=== PATIENT | male | born 1950 | race Caucasian/White ===

== ENCOUNTER → 2017-04-07 | Outpatient (CLI) | payer OTHER ==
[2017-04-07 12:52] LABS: BASO % 0.3 %; BASO ABS # 0.02 K/uL (0-0.2); COMPLETE YES; EOS % 6.4 %; HEMATOCRIT 41.9 % (42-52); IG% 0.2 %; LYMPH % 28.4 %; LYMPH ABS # 1.68 K/uL (1.2-3.4); MEAN CELL VOLUME 97.4 fL (80-100); MEAN CORPUSCULAR HEMOGLOBIN 34.4 pg (25-34); MEAN CORPUSCULAR HGB CONC 35.3 g/dl (32-36); MEAN PLATELET VOLUME 9.6 fL (7.4-10.4); MONO % 11.7 %; PLATELET COUNT 237 K/uL (130-400); WHITE BLOOD COUNT 5.92 K/uL (4.8-10.8)
[2017-04-07 13:29] LABS: ALT/SGPT 47 U/L (12-78)
[2017-04-07 13:32] LABS: ALKALINE PHOSPHATASE 71 U/L (45-117); AST/SGOT 30 U/L (15-37)
== END | disposition home or self-care (01) ==
LOC: C.LAB 10:55
PROVIDERS: ATTEND Physician Assistant
DX: Z79.899 Other long term (current) drug therapy (principal)

== ENCOUNTER → 2017-09-03 | Outpatient (CLI) | payer OTHER ==
--- NOTE | 2017-09-03 10:06 | DIAGNOSTIC IMAGING REPORT ---
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 No evidence for aneurysm or dissection. IMPRESSION: Mild atherosclerotic change. No evidence for aneurysm. The above report was generated using voice recognition software. It may contain grammatical, syntax or spelling errors. Electronically signed by: Nish Martinez M.D. 09/03/2017 10:05 AM Dictated Date/Time: 09/03/2017 10:04 AM
== END | disposition home or self-care (01) ==
LOC: C.ULTR 09:24
PROVIDERS: ATTEND Internal Medicine
DX: F17.200 Nicotine dependence, unspecified, uncomplicated (principal); Z13.6 Encounter for screening for cardiovascular disorders

== ENCOUNTER → 2018-02-03 | Day surgery (SDC) | payer OTHER ==
[2018-01-15 14:29] VITALS: Ht 175.3 cm; Wt 81.8 kg
[~2018-02-03] VITALS: Ht 175.3 cm; Wt 81.8 kg
[~2018-02-03] MED LIST: ADAL40KI INJ; FOLI1TAB8 PO; LIDOCAINE HCL 2% 2 ML VIAL (20MG/ML) ONE; OMEP20CA9 PO; PROPOFOL IV EMULSION 10 MG/ML 20 ML VIAL IV ONE; ROSU5TAB19 PO; SODIUM CHLORIDE 0.9% 500ML 500 ML IV ONE
--- NOTE | 2018-02-03 10:17 | Endo History and Physical ---
History & Physical Date of Service: Feb 03, 2018. Chief Complaint: Tubular adenoma of colon Referring Physician: Dr. Boston History of Present Illness 67 yo CM who presents for colonoscopy secondary to history of colon polyps. Past Surgical History Hx Cardiac Surgery: No Hx Internal Defibrillator: No Hx Pacemaker: No Hx Abdominal Surgery: No Hx of Implantable Prosthesis: No Hx Post-Op Nausea and Vomiting: No Hx Cancer Surgery: No Hx Thoracic Surgery: No Hx Orthopedic: Yes (LEFT COLLAR BONE FX REPAIR (HARDWARE), RT KNEE MENISCUS REPAIR) Hx Urinary Tract Surgery: No Family History None Social History Smoking Status: Current Every Day Smoker Hx Substance Use: No Hx Alcohol Use: No Allergies Coded Allergies: NO KNOWN DRUG ALLERGIES (Verified Allergy, Unknown, ., 02/03/18) Current Medications Reported Home Medications Medications Dose Route/Sig Max Daily Dose Days Date Category Humira Pen (Adalimumab) 40 Mg/0.8 Ml Kit 1 Dose INJ [id number] 01/15/18 Reported Rosuvastatin Calcium 5 Mg Tab 1 Tab PO QAM 01/15/18 Reported Folvite (Folic Acid) 1 Mg Tab 1 Mg PO QAM 01/15/18 Reported Prilosec (Omeprazole) 20 Mg Cap 20 Mg PO QAM 01/15/18 Reported Vital Signs Weight (Kilograms): 81.82 Height (Feet): 5 Height (Inches): 9 Date Time Temp Pulse Resp B/P (MAP) Pulse Ox O2 Delivery O2 Flow Rate FiO2 02/03/18 09:34 36.8 80 18 130/69 (89) 95 Room Air Physical Exam General Appearance: WD/WN, no apparent distress Respiratory/Chest: Auscultation: breath sounds normal Cardiovascular: Heart Auscultation: RRR Abdomen: Bowel Sounds: normal Inspection & Palpation: soft, non-distended, no tenderness, guarding & rebound Assessment and Plan Assessment: 67 yo CM who presents for colonoscopy secondary to history of colon polyps. Plan: Proceed with colonoscopy.
--- NOTE | 2018-02-03 11:05 | GI REPORT ---
Procedure Date: 02/03/2018 9:58 AM Procedure: Colonoscopy Indications: High risk colon cancer surveillance: Personal history of colonic polyps Medicines: Monitored Anesthesia Care Complications: No immediate complications. Estimated Blood Loss: Estimated blood loss: none. Procedure: Pre-Anesthesia Assessment: - Prior to the procedure, a History and Physical was performed, and patient medications and allergies were reviewed. The patient's tolerance of previous anesthesia was also reviewed. The risks and benefits of the procedure and the sedation options and risks were discussed with the patient. All questions were answered, and informed consent was obtained. Prior Anticoagulants: The patient has taken no previous anticoagulant or antiplatelet agents. ASA Grade Assessment: II - A patient with mild systemic disease. After reviewing the risks and benefits, the patient was deemed in satisfactory condition to undergo the procedure. After I obtained informed consent, the scope was passed under direct vision. Throughout the procedure, the patient's blood pressure, pulse, and oxygen saturations were monitored continuously. The scope was introduced through the anus and advanced to the terminal ileum. The colonoscopy was performed without difficulty. The patient tolerated the procedure well. The quality of the bowel preparation was good. The terminal ileum, ileocecal valve, appendiceal orifice, and rectum were photographed. Findings: The perianal and digital rectal examinations were normal. A 20 mm polyp was found in the ascending colon. The polyp was flat. The polyp was removed with a saline injection-lift technique with injection of 9 ml followed by piecemeal removal via hot snare. Resection and retrieval were complete. A 5 mm polyp was found in the ascending colon. The polyp was sessile. The polyp was removed with a hot snare. Resection and retrieval were complete. Non-bleeding internal hemorrhoids were found during retroflexion. The hemorrhoids were small. Impression: - One 20 mm polyp in the ascending colon, removed using injection-lift and a hot snare. Resected and retrieved. - One 5 mm polyp in the ascending colon, removed with a hot snare. Resected and retrieved. - Non-bleeding internal hemorrhoids. Recommendation: - Resume previous diet. - Continue present medications. - Repeat colonoscopy for surveillance based on pathology results. - Return to primary care physician as previously scheduled. Alexis Yang DO 02/03/2018 11:05:07 AM This report has been signed electronically. Note Initiated On: 02/03/2018 9:58 AM I attest to the content of the Intraoperative Record and orders documented therein, exceptions below
--- NOTE | 2018-02-03 11:06 | Discharge Instructions ---
Endoscopy Patient Instructions Date / Procedure(s) Performed Feb 03, 2018. Colonoscopy Allergy Information Coded Allergies: NO KNOWN DRUG ALLERGIES (Verified Allergy, Unknown, ., 02/03/18) Discharge Date / Findings Feb 03, 2018. Colon polyps Internal hemorrhoids Medication Instructions OK to resume all medications today as prescribed Reported Home Medications Medications Dose Route/Sig Max Daily Dose Days Date Category Humira Pen (Adalimumab) 40 Mg/0.8 Ml Kit 1 Dose INJ [id number] 01/15/18 Reported Rosuvastatin Calcium 5 Mg Tab 1 Tab PO QAM 01/15/18 Reported Folvite (Folic Acid) 1 Mg Tab 1 Mg PO QAM 01/15/18 Reported Prilosec (Omeprazole) 20 Mg Cap 20 Mg PO QAM 01/15/18 Reported Provider Instructions Activity Restrictions - No exercising or heavy lifting for 24 hours. - Do not drink alcohol the day of the procedure. - Do not drive a car or operate machinery until the day after the procedure. - Do not make any important decisions or sign important papers in 24 hours after the procedure. Following Day: - Return to full activity which may include returning to work/school. Diet Start your diet with liquids and light foods (jello, soup, juice, toast). Then eat your usual diet if not nauseated. Treatment For Common After Affects For mild abdominal pain, bloating, or excessive gas: - Rest - Eat lightly - Lie on right side Follow-Up Information Follow-up with Dr. Boston as scheduled Anesthesia Information What You Should Know You have had a procedure that required some medicine to reduce anxiety and discomfort. This treatment is called moderate sedation. After receiving the treatment, you may be sleepy, but you will be able to breathe on your own. The effects of the treatment may last for several hours. Follow these instructions along with Activity/Diet recommendations noted above: * Do NOT do anything where dizziness or clumsiness would be dangerous. * Rest quietly at home today, then you can be up and about tomorrow. * Have a responsible person stay with you the rest of today. * You may have had an I.V. today. If so, you may take the dressing off later today. Recommendations Call your doctor if: * Trouble breathing * Continuous vomiting for more than 24 hours * Temperature above 101 degrees * Severe abdominal pain or bloating * Pain not relieved by pain medicine ordered * There is increased drainage or redness from any incision * A large amount of rectal bleeding greater than 2-3 tablespoons. (If you had a polyp/s removed or have hemorrhoids, a small amount of blood - from the rectum is to be expected.) * You have any unanswered questions or concerns. IN THE EVENT OF A SERIOUS EMERGENCY, GO TO THE NEAREST EMERGENCY ROOM Your discharge instructions were prepared by provider Alexis Yang. Patient Instructions Signature Page Jr Holley Patient (or Guardian) Signature/Date: I have read and understand the instructions given to me by my caregivers. Caregiver/RN/Doctor Signature/Date: The above-named patient and/or guardian has received patient instructions on this date. + Original Patient Signature Page (only) stays with chart. Please make copy for patient.
[2018-02-03 11:34] VITALS: BP 107/83; PULSE 61; O2SAT 97
--- NOTE | 2018-02-03 12:26 | Anesthesiology Progress Note ---
Anesthesia Post Op Note Date & Time Feb 03, 2018 at 12:26 Vital Signs Pain Intensity: 0 Vital Signs Past 12 Hours Date Time Temp Pulse Resp B/P (MAP) Pulse Ox O2 Delivery O2 Flow Rate FiO2 02/03/18 11:34 61 18 107/83 (91) 97 Room Air 02/03/18 11:19 61 18 136/89 (105) 97 Room Air 02/03/18 11:04 66 18 126/69 (88) 98 Room Air 02/03/18 09:34 36.8 80 18 130/69 (89) 95 Room Air Notes Mental Status: alert / awake / arousable, participated in evaluation Pt Amnestic to Procedure: Yes Nausea / Vomiting: adequately controlled Pain: adequately controlled Airway Patency, RR, SpO2: stable & adequate BP & HR: stable & adequate Hydration State: stable & adequate Anesthetic Complications: no major complications apparent
== END | disposition home or self-care (01) ==
LOC: C.GI 09:01
PROVIDERS: ATTEND Internal Medicine
DX: Z12.11 Encounter for screening for malignant neoplasm of colon (principal); D12.2 Benign neoplasm of ascending colon; K64.8 Other hemorrhoids; F17.200 Nicotine dependence, unspecified, uncomplicated; M06.9 Rheumatoid arthritis, unspecified; Z86.010 Personal history of colon polyps

== ENCOUNTER → 2018-02-22 | Outpatient (CLI) | payer OTHER ==
[~2018-02-22] MED LIST changes: -LIDOCAINE HCL 2% 2 ML VIAL (20MG/ML) ONE; -PROPOFOL IV EMULSION 10 MG/ML 20 ML VIAL IV ONE; -SODIUM CHLORIDE 0.9% 500ML 500 ML IV ONE
[2018-02-22 10:37] LABS: HEMATOCRIT 44.9 % (42-52); HEMOGLOBIN 15.9 g/dL (14.0-18.0); MEAN CELL VOLUME 93.2 fL (80-100); MEAN CORPUSCULAR HGB CONC 35.4 g/dl (32-36); MEAN PLATELET VOLUME 9.2 fL (7.4-10.4); PLATELET COUNT 234 K/uL (130-400); RED CELL DISTRIBUTION WIDTH SD 44.5 fL (36.4-46.3); WHITE BLOOD COUNT 7.85 K/uL (4.8-10.8)
[2018-02-22 10:59] LABS: ALT/SGPT 30 U/L (12-78); AST/SGOT 20 U/L (15-37); BLOOD UREA NITROGEN 13 mg/dl (7-18); CALCIUM 9.2 mg/dl (8.5-10.1); CARBON DIOXIDE 28 mmol/L (21-32); CHOLESTEROL 182 mg/dl (0-200); CREATININE 1.14 mg/dl (0.60-1.40); GLUCOSE 113 mg/dl (70-99); POTASSIUM 4.7 mmol/L (3.5-5.1); SODIUM 137 mmol/L (136-145)
[2018-02-22 11:02] LABS: LDL CHOLESTEROL CALCULATED 94 mg/dl
== END | disposition home or self-care (01) ==
LOC: C.LAB1850 09:32
PROVIDERS: ATTEND Internal Medicine
DX: E78.00 Pure hypercholesterolemia, unspecified (principal); M06.9 Rheumatoid arthritis, unspecified

== ENCOUNTER 2018-06-10 05:24 | Day surgery (SDC) | payer OTHER ==
[2018-06-01 13:17] VITALS: BMI 25.0
[2018-06-03 12:49] VITALS: BMI 25.0
--- NOTE | 2018-06-03 13:13 | PAT Medication Instructions ---
Service Date Jun 03, 2018. Current Home Medication List Adalimumab (Humira Pen), 1 DOSE INJ [id number] Folic Acid (Folvite), 1 MG PO QAM Ibuprofen Tab (Advil), 400 MG PO PRN Omeprazole (Prilosec), 20 MG PO QAM Rosuvastatin Calcium (Rosuvastatin Calcium), 1 TAB PO QAM Medication Instructions For Your Scheduled Surgery -Continue as directed after surgery Adalimumab (Humira Pen), 1 DOSE INJ [id number] -Instructions per surgeon: Ibuprofen Tab (Advil), 400 MG PO PRN - Hold the following medications the morning of surgery: Folic Acid (Folvite), 1 MG PO QAM - Take the following medications the morning of surgery with a sip of water: Omeprazole (Prilosec), 20 MG PO QAM Rosuvastatin Calcium (Rosuvastatin Calcium), 1 TAB PO QAM If you have any questions please call us at [phone] or [phone] or [phone]
[2018-06-03 13:38] LABS: BASO % 0.3 %; BASO ABS # 0.02 K/uL (0-0.2); EOS % 6.7 %; EOS ABS # 0.53 K/uL (0-0.5); HEMATOCRIT 44.9 % (42-52); HEMOGLOBIN 16.1 g/dL (14.0-18.0); IG# 0.02 K/uL (0.00-0.02); LYMPH % 26.8 %; LYMPH ABS # 2.13 K/uL (1.2-3.4); MEAN CELL VOLUME 94.3 fL (80-100); MEAN CORPUSCULAR HEMOGLOBIN 33.8 pg (25-34); MEAN CORPUSCULAR HGB CONC 35.9 g/dl (32-36); MEAN PLATELET VOLUME 9.6 fL (7.4-10.4); MONO % 9.1 %; MONO ABS # 0.72 K/uL (0.11-0.59); NEUT % 56.8 %; NEUT ABS # 4.53 K/uL (1.4-6.5); PLATELET COUNT 211 K/uL (130-400); RED CELL DISTRIBUTION WIDTH CV 13.2 % (11.5-14.5); RED CELL DISTRIBUTION WIDTH SD 45.7 fL (36.4-46.3); WHITE BLOOD COUNT 7.95 K/uL (4.8-10.8)
--- NOTE | 2018-06-03 13:53 | DIAGNOSTIC IMAGING REPORT ---
CERVICAL SPINE 2 OR 3 VIEWS HISTORY: Preoperative evaluation pre op RA; lateral neutral/flexion/extension COMPARISON: None. FINDINGS: The cervical spine is visualized from C1 through the superior endplate of T1. There is no fracture. No subluxation. Mild degenerative disc change. Prevertebral soft tissues and the atlantodens interval are intact. No evidence for positional subluxation IMPRESSION: No evidence for positional subluxation. The above report was generated using voice recognition software. It may contain grammatical, syntax or spelling errors. Electronically signed by: Nish Martinez M.D. 06/03/2018 1:51 PM Dictated Date/Time: 06/03/2018 1:50 PM
[2018-06-03 14:44] LABS: CALCIUM 9.1 mg/dl (8.5-10.1); CREATININE 0.98 mg/dl (0.60-1.40); POTASSIUM 4.2 mmol/L (3.5-5.1)
[~2018-06-10] VITALS: Ht 175.3 cm; Wt 79.4 kg
[~2018-06-10 05:24] MED LIST changes: +IBUP-103 PO; +ROSU5TAB11 PO; -ROSU5TAB19 PO
[2018-06-10 05:54] VITALS: BP 143/72; PULSE 54; TEMP 36.6; O2SAT 98; Ht 175.3 cm; Wt 79.4 kg
[2018-06-10] MEDS ORDERED: LACTATED RINGER'S 1000ML 1,000 ML IV SCH (06:00)
[2018-06-10] MEDS ORDERED: CEFAZOLIN SOD 2000MG/15 ML IV PUSH ONE (06:03)
[2018-06-10] MEDS ORDERED: MIDAZOLAM HCL 1 MG/ML 2ML VIAL ONE (06:37)
[2018-06-10] MEDS ORDERED: FENTANYL CITRATE INJ 50 MCG/1 ML 2 ML VIAL ONE (06:38)
[2018-06-10] MEDS ORDERED: BUPIVACAINE/EPINEPHRINE 0.5% MPF 1:200,000 30 ML VIAL ONE ×2 (06:42→08:25)
--- NOTE | 2018-06-10 06:56 | History & Physical Bridge Note ---
H&P Re-Evaluation Bridge Note: I have examined the patient, reviewed the History & Physical and in the interval since the performance of the History & Physical I have noted the following changes of clinical significance: No changes noted
[2018-06-10] MEDS ORDERED: PROPOFOL IV EMULSION 10 MG/ML 20 ML VIAL ONE (07:38)
[2018-06-10] MEDS ORDERED: ONDANSETRON INJ 2 MG/ML 2 ML VIAL ONE (07:38)
[2018-06-10] MEDS ORDERED: DEXAMETHASONE SOD INJ 4 MG/ML VIAL ONE (07:38)
[2018-06-10] MEDS ORDERED: LIDOCAINE HCL 2% 2 ML VIAL (20MG/ML) ONE (07:38)
[2018-06-10] MEDS ORDERED: ROCURONIUM BROMIDE 10 MG/ML 5 ML VIAL ONE (07:38)
[2018-06-10] MEDS ORDERED: NEOSTIGMINE METHYLSULFATE 5 MG/5 ML SYR ONE (07:40)
[2018-06-10] MEDS ORDERED: GLYCOPYRROLATE INJ 0.2 MG/ML VIAL ONE (07:40)
--- NOTE | 2018-06-10 08:26 | [facility] Post Operative Brief Note ---
Immediate Operative Summary Operative Date Jun 10, 2018. Pre-Operative Diagnosis Bilateral Inguinal Hernias Post-Operative Diagnosis Bilateral Inguinal Hernias Procedure(s) Performed Open Bilateral Inguinal Hernia Repair with Mesh ( plug and patch) Surgeon Dr. Tim Second Cutter Surgeon(s) BETHANY Carranza Estimated Blood Loss 5 ml Findings Consistent with Post-Op Diagnosis Specimens none per surgeon Anesthesia Type General Complication(s) none
[2018-06-10] MEDS ORDERED: LABETALOL HCL IV 5 MG/ML 20ML IV PRN (08:30)
[2018-06-10] MEDS ORDERED: HYDROmorphone INJ 0.5 MG/0.5 ML SYR IV PRN (08:30)
[2018-06-10] MEDS ORDERED: ONDANSETRON INJ 2 MG/ML 2 ML VIAL IV PRN ×2 (08:30→08:45)
[2018-06-10] MEDS ORDERED: FENTANYL CITRATE INJ 50 MCG/1 ML 2 ML VIAL IV PRN (08:30)
[2018-06-10] MEDS ORDERED: ATROPINE SULFATE 0.1 MG/ML 5ML SYR IV PRN (08:30)
[2018-06-10] MEDS ORDERED: EpHEDrine SULFATE INJ 50 MG/ML AMP IV PRN (08:30)
[2018-06-10] MEDS ORDERED: MEPERIDINE HCL 25 MG/ML CARP IV PRN (08:30)
[2018-06-10] MEDS ORDERED: SODIUM CHLORIDE 0.9% 1000ML 1,000 ML IV SCH (08:34)
[2018-06-10] MEDS ORDERED: HYDR-5688 PO (08:36)
--- NOTE | 2018-06-10 08:38 | Discharge Instructions ---
Discharge Instructions Date of Service Jun 10, 2018. Admission Reason for Admission: Bilateral Inguinal Hernias Discharge Discharge Diagnosis / Problem: Bilateral Inguinal Hernias Discharge Goals Goal(s): Decrease discomfort, Improve function Activity Recommendations Activity Limitations: as noted below Lifting Limitations: no more than 10 pounds Exercise/Sports Limitations: until after follow-up appointment May Resume Sexual Activity: after follow-up appointment Shower/Bathe: tomorrow Driving or Machine Use: resume 3 days after discharge . Instructions / Follow-Up Instructions / Follow-Up You have surgical glue, Dermabond, over your incisions. You may shower tomorrow , but please do not soak or scrub your incisions. Please follow-up with Dr. Tim in the General Surgery Clinic in 1-2 weeks. Please call the clinic at [phone] to make this appointment if you do not have one already. Please call the clinic at [phone] with any questions or concerns. Current Hospital Diet Patient's current hospital diet: Discharge Diet Recommended Diet: Regular Diet Procedures Procedures Performed: Open Bilateral Inguinal Hernia Repair with Mesh ( plug and patch) Pending Studies Studies pending at discharge: no Medical Emergencies . Who to Call and When: Medical Emergencies: If at any time you feel your situation is an emergency, please call 911 immediately. . Non-Emergent Contact Non-Emergency issues call your: Primary Care Provider, Surgeon Call Non-Emergent contact if: temperature is above 101.5, your pain is not controlled, wound has increased drainage, wound has increased redness . "Provider Documentation" section prepared by Evelin Jin. .
[2018-06-10] MEDS ORDERED: HYDROCODONE/ACETAMIN 5/325MG TAB PO PRN ×2 (08:45)
--- NOTE | 2018-06-10 08:56 | [facility] Operative Report ---
Operative Report Operative Date Jun 10, 2018. Pre-Operative Diagnosis Bilateral Inguinal Hernias Post-Operative Diagnosis Bilateral Inguinal Hernias Procedure(s) Performed Open Bilateral Inguinal Hernia Repair with Mesh ( plug and patch) Surgeon Dr. Tim Securities Teller Surgeon(s) BETHANY Carranza Estimated Blood Loss 5 ml Specimens none per surgeon Complication(s) none Description of Procedure After informed consent was obtained the patient was taken the operating room and placed in supine position. After successful placement of the laryngeal mask airway the groin was shaved and sterilely prepped and draped in usual fashion. I began on the right inguinal hernia. An inguinal incision was made with a 15 blade scalpel and carried down through the soft tissue using electrocautery. The external oblique aponeurosis was skeletonized. A fresh blade was used to make an incision and then Metzenbaum scissors were used to extend this distally through the external ring as well as for several centimeters proximally. Once in the inguinal canal I used blunt finger dissection to free up the cord and cord structures. I was able to gently tease the cord off of the pubic bone and placed a [place] drain around it. We immediately noted a rather large direct/discrete inguinal hernia. We are able to dissect it back to its neck and reduce it. We inspected the cord and cord structures and there was no evidence of an indirect hernia. we then thoroughly irrigated the wound. I decided to use a plug and patch technique. I placed a polypropylene plug into the defect after reducing the hernia and secured to surrounding musculature including the shelving portion of Poupart's ligament with 0 Ethibond. Next, I used a polypropylene lopez-holed mesh as an onlay. It was secured distally to Pio's ligament, laterally along the shelving portion of Poupart's ligament and medially along the midline musculature. 0 Ethibond was used for the suturing. The "arms" of the mesh were wrapped around behind the cord and cord structures and again secured to underlying muscle. The mesh laid nice and flat and tension-free and did not impinge on the cord structures themselves. We thoroughly irrigated the wound. There was adequate hemostasis. I injected Marcaine around the edges of the mesh for postoperative analgesia. We then closed the external oblique aponeurosis with 2-0 Vicryl in a running fashion. Soft tissue was irrigated and closed in multiple layers using 3-0 Vicryl for the deep layers and 4-0 Monocryl for the skin. Some additional Marcaine was injected around the skin incision. We then used a skin glue as a dressing. My attention then turned to the left hernia. We used the exact same technique. His anatomy was identical to the right side. There was no indirect hernia but a rather large discrete direct hernia. Again we used a polypropylene plug and a polypropylene keyholed mesh as an onlay. We secured it to the same structures as the right side again using 0 Ethibond. Irrigation and closure were identical as well. We placed Marcaine around the skin and skin glue as a dressing as well. The patient was awaken extubated and transferred to recovery in stable condition. My physician's observation assistant was present throughout the entire procedure. She helped prep the patient. Helped with retraction throughout the case to aid my dissection, assisted with wound closure as well as dressing placement. I attest to the content of the Intraoperative Record and any orders documented therein. Any exceptions are noted below. I attest to the content of the Intraoperative Record and any orders documented therein. Any exceptions are noted below.
[2018-06-10 09:17] VITALS: BP 115/60; PULSE 70; TEMP 36.5; O2SAT 98
--- NOTE | 2018-06-10 09:42 | Anesthesiology Progress Note ---
Anesthesia Post Op Note Date & Time Jun 10, 2018 at 09:42 Vital Signs Pain Intensity: 4 Vital Signs Past 12 Hours Date Time Temp Pulse Resp B/P (MAP) Pulse Ox O2 Delivery O2 Flow Rate FiO2 06/10/18 09:17 36.5 70 14 115/60 98 Room Air 06/10/18 09:05 36.6 69 16 105/59 97 Room Air 06/10/18 08:55 71 16 116/68 99 Nasal Cannula 3 06/10/18 08:45 67 16 106/62 99 Nasal Cannula 3 06/10/18 08:35 36.4 99 16 109/68 95 Nasal Cannula 3 06/10/18 05:54 36.6 54 54 143/72 (95) 98 Room Air Notes Mental Status: alert / awake / arousable, participated in evaluation Pt Amnestic to Procedure: Yes Nausea / Vomiting: adequately controlled Pain: adequately controlled Airway Patency, RR, SpO2: stable & adequate BP & HR: stable & adequate Hydration State: stable & adequate Anesthetic Complications: no major complications apparent
[2018-06-10 09:47] VITALS: BP 127/78; PULSE 67; O2SAT 96
[2018-06-10 10:17] VITALS: BP 139/75; PULSE 64; O2SAT 97
[2018-06-10 10:47] VITALS: BP 133/68; PULSE 72; O2SAT 97
[2018-06-10] MEDS ORDERED: NURSING VERBAL MED ORDER ONE (11:00)
[2018-06-10] MEDS ORDERED: TAMSULOSIN HCL 0.4 MG CAP PO ONE (11:15)
[2018-06-10 11:17] VITALS: BP 144/88; PULSE 72; O2SAT 96
== END 2018-06-10 12:15 | disposition home or self-care (01) ==
LOC: C.ACU 05:24
PROVIDERS: ATTEND Surgery
DX: K40.20 Bilateral inguinal hernia, without obstruction or gangrene, not specified as recurrent (principal); K64.8 Other hemorrhoids; M19.90 Unspecified osteoarthritis, unspecified site; M06.9 Rheumatoid arthritis, unspecified; F17.200 Nicotine dependence, unspecified, uncomplicated; K21.9 Gastro-esophageal reflux disease without esophagitis; E78.00 Pure hypercholesterolemia, unspecified; Z79.82 Long term (current) use of aspirin

== ENCOUNTER 2024-07-04 14:07 | Inpatient (IN) ==
--- NOTE | 2024-07-04 14:29 | Emergency Department Note ---
Impression & Plan Colitis, Left lower quadrant abdominal pain, Acute lower GI bleeding, Leukocytosis ED Provider Note NAME: ELISSA CHACON Sr AGE: 73 SEX: M : 1950 ARRIVES VIA: Walk-In INFORMANT: Patient ED PROVIDER(S): Chris Keith MD CHIEF COMPLAINT: Abdominal pain PLAN: Disposition: Admit MEDICAL DECISION MAKING: The patient is a pleasant 73 gentleman with a past medical history of RA, hyperlipidemia, chronic smoker, GERD who presents to the emergency department for evaluation of lower abdominal pain and bright red rectal bleeding. Patient reports he first had a formed-hard bowel movement with straining this morning and small amounts of blood but then reports that 5 hours ago he began to have lower abdominal pain which is worse when he is straining. He refers having multiples episodes of red bright blood when he tried to had bowel movements. refers they were more dark in nature with blood clots. Last bowel movement was 2 days ago. He denied any history of diverticulosis or similar events in the past. He does refers having hemorrhoids in the past. He denied any dizziness or lightheadedness but refers feeling more tired than usual. Denied any chest pain, SOB, palpitations nausea or vomiting. Denied any used of blood thinner or antiplatelet. Last colonoscopy was on 01/2024 which only showed polyps. On evaluation patient is no acute distress, afebrile with stable vital signs. He appears clinically dry. He has mild left lower quadrant tenderness with involuntary guarding. There is no rebound. WBC 17K with neutrophil predominance but no left shift, nonspecific. H/H and platelets within normal limits. Chemistry without metabolic acidosis. Electrolytes without significant abnormality. Total Long is 1.6, nonspecific with LFTs otherwise normal. Lipase is not elevated. Procalcitonin is undetectable. Lactic acid 1.1, within normal limits. UA without evidence of infection. CT abdomen pelvis was performed and demonstrates colonic wall thickening from the splenic flexure to the descending colon which may be infectious/inflammatory or ischemic. However, given the patient's normal lactic acid and no metabolic acidosis suspect ischemic colitis is less likely at this time. Given leukocytosis we will proceed with empiric antibiotic treatment with Zosyn at this time. Case was also discussed with general surgery on-call, Dr. Casey who agrees with admission to medicine service for IV antibiotics, IV fluid hydration and monitoring. Recommends GI consultation as well. IV Zosyn ordered. Case was d/w Dr. Rubio [facility] [place] hospitalist who will evaluate the patient for admission. This patient was managed with the assistance of resident, Dr. Gandhi. I discussed the case with the resident, examined the patient, and confirm the findings and plan as documented in this note. Triage Nursing notes reviewed and agree them. Prior/external medical records reviewed Vital Signs: reviewed Differential diagnosis: Appendicitis, testicular torsion, infections, diverticulitis, UTI, obstruction, mesenteric ischemia, aortic pathology, inflammatory bowel disease, renal colic, PUD, pancreatitis, biliary pathology, hernia, volvulus, constipation, as well as other pathologies. ER treatment provided: See below. Diagnostics interpreted by me: Cardiac Monitoring: An order for continuous cardiac monitoring was placed and demonstrated normal sinus rhythm, 78 bpm, no ectopy. Laboratory studies: See below Imaging studies: See below Consultation(s): Case was d/w Dr. Rubio [facility] [place] hospitalist who will evaluate the patient for admission. HPI: The patient is a pleasant 73 gentleman with a past medical history of RA, hyperlipidemia, chronic smoker, GERD who presents to the emergency department for evaluation of lower abdominal pain and bright red rectal bleeding. Patient reports he first had a formed-hard bowel movement with straining this morning and small amounts of blood but then reports that 5 hours ago he began to have lower abdominal pain which is worse when he is straining. He refers having multiples episodes of red bright blood when he tried to had bowel movements. refers they were more dark in nature with blood clots. Last bowel movement was 2 days ago. He denied any history of diverticulosis or similar events in the past. He does refers having hemorrhoids in the past. He denied any dizziness or lightheadedness but refers feeling more tired than usual. Denied any chest pain, SOB, palpitations nausea or vomiting. Denied any used of blood thinner or antiplatelet. Last colonoscopy was on 01/2024 which only showed polyps. ROS: See above HPI for pertinent positives & negatives. A total of 10 systems reviewed and were otherwise negative. VITALS:See Below PHYSICAL EXAMINATION: GENERAL: Awake, alert, fatigued-appearing, in no distress HENT: Normocephalic, atraumatic. Oropharynx with dry mucous membranes and otherwise unremarkable. EYES: Normal conjunctiva. Sclera non-icteric. NECK: Supple. No nuchal rigidity. FROM. No JVD. RESPIRATORY: Clear to auscultation. CARDIAC: Regular rate, normal rhythm. Extremities warm and well perfused. Pulses equal. ABDOMEN: Soft, non-distended. Mild LLQ tenderness to palpation. Voluntary guarding. No rebound. No masses. RECTAL: Red blood per resident exam. No melena or gross hemorrhage. MUSCULOSKELETAL: Chest examination reveals no tenderness. The back is symmetrical on inspection without obvious abnormality. There is no CVA tenderness to palpation. No joint edema. LOWER EXTREMITIES: Calves are equal size bilaterally and non-tender. No edema. No discoloration. NEURO: Normal sensorium. No sensory or motor deficits noted. SKIN: No rash or jaundice noted. Chris Keith MD Past Med/Surg History Problem List (Updated 07/05/24 @ 02:30 by Chris Keith MD) Hematochezia Leukocytosis (Acute) Acute lower GI bleeding (Acute) Left lower quadrant abdominal pain (Acute) Colitis (Acute) COPD (chronic obstructive pulmonary disease) (Acute) Left knee pain Knee pain Ear lesion Ankle pain Current use of proton pump inhibitor Left shoulder pain Adjustment disorder (Acute) GERD without esophagitis (Acute) Hypercholesterolemia (Acute) Internal hemorrhoids (Acute) Tobacco use (Chronic) Tubular adenoma of colon (Acute) Rheumatoid arthritis Acid reflux History of colon polyps Medical History COPD (chronic obstructive pulmonary disease) Slow to wake up after anesthesia Smoker History of depression Tubular adenoma of colon GERD (gastroesophageal reflux disease) Rheumatoid arthritis Hyperlipidemia Surgical History History of cataract surgery History of open reduction and internal fixation (ORIF) procedure Hx of arthroscopy of knee History of herniorrhaphy History of colonoscopy Family History Mother Diabetes Cervical cancer Breast cancer Uncle Lung cancer Denies family history of Ovarian cancer Prostate cancer Myocardial infarction Colorectal cancer Stroke Social History Smoking Status: Current every day smoker Tobacco Type: Cigarettes Age Started Using Tobacco: 14; packs per day: 0.25; Cigarettes Per Day: 5; Second Hand Exposure: No; Do You Dip or Chew Tobacco: No; Tobacco Cessation Education Requested by Patient: No Hx Alcohol Use: No Hx Substance Use: No Preferred Language: Thai Communication Ability: Effective Visual Impairment: Limited Hearing Ability: Use of Hearing Aid Lime Mixer Tender Required: No Beliefs That Will Affect Care: None marital status: Current Living Situation: Spouse current occupational status: retired How many Children do You have: 2 Other Information That Helps Us Care for You: No Feels Safe at Home: Yes Safety Concerns: Feels Safe At This Time Childhood Exposure to Second-Hand Smoke: Yes (step father) Diet Comment: Regular diet caffeine: Yes Dental Care, Regularly: Yes Physical Activity Frequency: Daily Seatbelt Use: always Sunscreen Use: No Assistive Devices: Denture - Lower and Hearing Aid - Bilateral Allergies Allergies Allergy/AdvReac Type Severity Reaction Status Date / Time simvastatin [From Zocor] Allergy Intermediate Hives Verified 07/04/24 19:54 Yeast Allergy Intermediate Hives Verified 07/04/24 19:54 Home Meds Home Medications Medication Instructions Recorded Confirmed omeprazole 20 mg capsule,delayed 20 mg PO BID PRN Acid Reflux 02/01/19 07/04/24 release folic acid 1 mg tablet 1 mg PO QAM 09/12/21 07/04/24 acetaminophen 500 mg capsule 500 mg PO Q6H PRN Fever Or Pain 07/01/23 07/04/24 methotrexate sodium 2.5 mg tablet 15 mg PO Q7D 07/01/23 07/04/24 cholecalciferol (vitamin D3) 125 125 mcg PO QAM 02/04/24 07/04/24 mcg (5,000 unit) tablet (Vitamin D3) cyanocobalamin (vitamin B-12) 1,000 mcg PO QAM 02/04/24 07/04/24 1,000 mcg tablet (Vitamin B-12) Previous Rx's Medication Instructions Recorded rosuvastatin 5 mg tablet 5 mg PO QAM #90 tabs 08/14/23 Results & Data (ED) Vital Signs Vital Signs - 24 hr 07/04/24 14:11 07/04/24 15:00 07/04/24 15:10 Temperature 36.4 C L Temperature Source Temporal Artery Scan Pulse Rate 78 59 L 78 Pulse Rate from SpO2 Sensor 60 Pulse Rhythm Regular Respiratory Rate 18 21 18 Respiratory Effort / Characteristics Non-Labored Spontaneous Respiratory Depth Normal Respiratory Pattern Regular Blood Pressure 124/73 152/70 H Blood Pressure Mean 90 108 Pulse Oximetry 96 97 96 Oxygen Delivery Method Room Air Room Air Sepsis Recent Fever Within 48 Hours No Sepsis New/Unexplained Change in Mental Status N/A Sepsis Action Taken by Nursing No Action Required 07/04/24 15:10 07/04/24 15:30 07/04/24 16:30 Temperature Temperature Source Pulse Rate 61 59 L 53 L Pulse Rate from SpO2 Sensor 59 L Pulse Rhythm Respiratory Rate 17 15 Respiratory Effort / Characteristics Respiratory Depth Respiratory Pattern Blood Pressure 140/68 142/65 H Blood Pressure Mean 101 106 Pulse Oximetry 95 Oxygen Delivery Method Sepsis Recent Fever Within 48 Hours Sepsis New/Unexplained Change in Mental Status Sepsis Action Taken by Nursing 07/04/24 18:00 Temperature Temperature Source Pulse Rate 58 L Pulse Rate from SpO2 Sensor 58 L Pulse Rhythm Respiratory Rate 16 Respiratory Effort / Characteristics Respiratory Depth Respiratory Pattern Blood Pressure 134/73 Blood Pressure Mean 93 Pulse Oximetry 95 Oxygen Delivery Method Sepsis Recent Fever Within 48 Hours Sepsis New/Unexplained Change in Mental Status Sepsis Action Taken by Nursing Laboratory Data 07/04/24 14:45 07/04/24 14:45 Lab Results 07/04/24 07/04/24 07/04/24 Range/Units 14:45 17:05 17:16 WBC 17.13 H (4.8-10.8) K/ul RBC 4.61 L (4.70-6.10) M/uL Hgb 15.7 (14.0-18.0) g/dl Hct 43.4 (42.0-52.0) % MCV 94.1 (80.0-100.0) fL MCH 34.1 H (25.0-34.0) pg MCHC 36.2 H (32.0-36.0) g/dL RDW Std Deviation 44.5 (36.4-46.3) fL RDW Coeff of Marissa 13.0 (11.5-14.5) % Plt Count 269 (130-400) K/uL MPV 9.3 L (9.4-12.4) fL Immature Gran % (Auto) 0.4 % Neut % (Auto) 90.8 % Lymph % (Auto) 4.4 % [place] % (Auto) 3.6 % Eos % (Auto) 0.7 % Baso % (Auto) 0.1 % Neut # (Auto) 15.55 H (1.40-6.50) K/uL Lymph # (Auto) 0.76 L (1.20-3.40) K/uL [place] # (Auto) 0.61 H (0.11-0.59) K/uL Eos # (Auto) 0.12 (0.00-0.50) K/uL Baso # (Auto) 0.02 (0.00-0.20) K/uL Immature Gran # (Auto) 0.07 (0.01-0.20) K/uL PT 10.3 (9.0-12.0) Seconds INR 0.9 (0.9-1.1) Sodium 136 (136-145) mmol/L Potassium 4.1 (3.5-5.1) mmol/L Chloride 103 (98-107) mmol/L Carbon Dioxide 27 (21-32) mmol/L Anion Gap 6 (3-11) BUN 12 (6-23) mg/dl Creatinine 0.86 (0.6-1.4) mg/dl Est Cr Clr Drug Dosing 77.6 ml/min Est GFR ( Amer) 100.4 ml/min Est GFR (Non-Af Amer) 86.6 ml/min BUN/Creatinine Ratio 14.0 (10-20) Glucose 106 H (70-99(Fasting)) mg/dl Lactate 1.1 (0.4-2.0) mmol/L Calcium 9.3 (8.6-10.3) mg/dl Phosphorus 3.1 (2.5-4.9) mg/dl Magnesium 1.8 (1.7-2.4) mg/dl Total Bilirubin 1.6 H (0.2-1.0) mg/dl AST 19 (13-39) U/L ALT 22 (7-52) U/L Alkaline Phosphatase 71 (34-104) U/L Total Protein 6.9 (6.0-8.3) gm/dl Albumin 4.1 (3.4-5.0) gm/dl Globulin 2.8 (2.5-4.0) gm/dl Albumin/Globulin Ratio 1.5 (0.9-2) Lipase < 3 L (11-82) U/L Procalcitonin < 0.02 (0-0.5) ng/ml Urine Color Yellow Urine Appearance Clear (Clear) Urine pH 6.5 (4.5-7.5) Ur Specific [place] 1.022 (1.000-1.030) Urine Protein Negative (Negative) Urine Glucose (UA) Negative (Negative) Urine Ketones Trace H (Negative) Urine Blood Negative (Negative) Urine Nitrite Negative (Negative) Urine Bilirubin Negative (Negative) Urine Urobilinogen Negative (Negative) Ur Leukocyte Esterase Negative (Negative) Administered Medications Lactated Ringer's (Lr) 1,000 mls @ 125 mls/hr IV .Q8H PEPE Stop: 08/03/24 20:51 Last Admin: 07/04/24 21:04 Dose: 125 mls/hr Documented By: ZULEIKA Piperacillin Sod/Tazobactam Sod (Zosyn) 4.5 gm in 100 mls @ 25 mls/hr IV Q8H PEPE Stop: 07/08/24 22:59 Last Admin: 07/04/24 23:52 Dose: 25 mls/hr Documented By: ZULEIKA Morphine Sulfate (Morphine Sulfate 2 Mg/Ml Carp) 2 mg IV Q3H PRN PRN Reason: Pain (1,2,3,4,5) & Pre PT Stop: 07/18/24 23:33 Last Admin: 07/05/24 00:59 Dose: 2 mg Documented By: ZULEIKA Discontinued Medications Sodium Chloride (Nss) 1,000 mls @ 999 mls/hr IV .Q1H1M ONE Stop: 07/04/24 15:33 Last Infusion: 07/04/24 16:13 Dose: Infused Documented By: Admin: 07/04/24 14:50 Dose: 999 mls/hr Documented By: DRAKE Acetaminophen (Ofirmev) 1,000 mg in 100 mls @ 400 mls/hr IV NOW STA Stop: 07/04/24 14:57 Last Infusion: 07/04/24 15:11 Dose: Infused Documented By: Admin: 07/04/24 14:54 Dose: 400 mls/hr Documented By: DRAKE Sodium Chloride (Nss) 1,000 mls @ 999 mls/hr IV .Q1H1M PEPE Stop: 07/04/24 18:34 Last Infusion: 07/04/24 20:30 Dose: Infused Documented By: Admin: 07/04/24 17:53 Dose: 999 mls/hr Documented By: DRAKE Piperacillin Sod/Tazobactam Sod (Zosyn) 4.5 gm in 100 mls @ 200 mls/hr IV NOW ONE Stop: 07/04/24 18:02 Last Infusion: 07/04/24 18:33 Dose: Infused Documented By: Admin: 07/04/24 17:54 Dose: 200 mls/hr Documented By: DRAKE Pantoprazole Sodium 40 mg/ (Syringe) 10 mls @ 5 mls/min IV NOW ONE Stop: 07/04/24 19:32 Last Admin: 07/04/24 21:03 Dose: 5 mls/min Documented By: ZULEIKA Ioversol (Optiray 320 100ml) 94 ml IV ONCE ONE Stop: 07/04/24 16:07 Last Admin: 07/04/24 16:07 Dose: 94 ml Documented By: MOY Imaging Data Radiologist's Impression: Abdomen/Pelvis CT 07/04/24 14:34 CT abd pelvis IV con only CLINICAL HISTORY: abd pain, GI bleeding TECHNIQUE: Helical axial images of the abdomen and pelvis were obtained and displayed. Automated dose lowering techniques and/or adjustment according to patient size were utilized for this exam. This exam was performed with intravenous contrast. CT DOSE: 733.19 mGy.cm COMPARISON: Comparison is made to CT abdomen pelvis 05/05/2019 FINDINGS: Lower chest: Interstitial thickening is seen. Liver: Unremarkable. No focal lesions are seen. Gallbladder and biliary tree: No calcified gallstones. Normal caliber wall. No intra- or extrahepatic biliary ductal dilation. Pancreas: Unremarkable, no focal lesions. Spleen: Unremarkable. Adrenals: Unremarkable. Kidneys and ureters: Unremarkable. Bladder: Unremarkable. Reproductive organs: Unremarkable. Bowel: Colonic wall thickening extends from the splenic flexure to the distal sigmoid colon. A few diverticula are seen. A hiatal hernia is seen. Lymph nodes Retroperitoneal: Unremarkable. Pelvic: Unremarkable. Mesenteric: Unremarkable. Peritoneum: Normal. Vessels: Atherosclerotic calcifications are seen. Abdominal wall: A fat-containing umbilical hernia is seen. Bones: Degenerative changes in the visualized spine. IMPRESSION: Colonic thickening in the splenic flexure to the distal sigmoid colon compatible with infectious/inflammatory/ischemic colitis. The distribution does coincide with the inferior mesenteric artery distribution. ACT 112: Negative or not required by law. Electronically signed by: Gianluca Gale M.D. 07/04/2024 4:44 PM Discharge Plan Visit Data Chief Complaint: Rectal Bleed Stated Complaint: BLEEDING BOWELS, CRAMPING, WEAK ED Provider: Chris Keith ED Midlevel Provider: Jacki Bourgeois Discharge Problem: Colitis, Left lower quadrant abdominal pain, Acute lower GI bleeding, Leukocytosis Patient Disposition: Admitted As Inpatient Discharge Instructions Interventions: ED Discharge Assessment Last Done: 07/04/24 20:30 Discharge Problem: Leukocytosis Qualifiers: Leukocytosis type: unspecified Qualified Code(s): D72.829 - Elevated white blood cell count, unspecified
[2024-07-04] MEDS: SODIUM CHLORIDE 0.9% 1,000 ML IV ONE (14:50)
[2024-07-04] MEDS: ACETAMINOPHEN 1,000 MG/100 ML VIAL IV STA (14:54)
[2024-07-04 15:17] LABS: Anion Gap 6 (3-11); Blood Urea Nitrogen 12 mg/dl (6-23); Calcium 9.3 mg/dl (8.6-10.3); Carbon Dioxide 27 mmol/L (21-32); Chloride 103 mmol/L (98-107); Creatinine Clr Calc Pharmacy 77.6 ml/min; Est GFR (African American) 100.4 ml/min; Est GFR (Non-African American) 86.6 ml/min; Glucose 106 mg/dl (70-99(Fasting)); Potassium 4.1 mmol/L (3.5-5.1); Sodium 136 mmol/L (136-145)
[2024-07-04 15:19] LABS: Alanine Aminotransferase 22 U/L (7-52); Albumin Globulin Ratio 1.5 (0.9-2); Albumin Level 4.1 gm/dl (3.4-5.0); Alkaline Phosphatase 71 U/L (34-104); Aspartate Aminotransferase 19 U/L (13-39); Bilirubin,Total 1.6 mg/dl (0.2-1.0); Globulin 2.8 gm/dl (2.5-4.0); Lipase < 3 U/L (11-82); Total Protein 6.9 gm/dl (6.0-8.3)
[2024-07-04 15:30] LABS: Hematocrit (blood only) 43.4 % (42.0-52.0); Hemoglobin 15.7 g/dl (14.0-18.0); Mean Corpuscular Hemoglobin 34.1 pg (25.0-34.0); Mean Corpuscular Hgb Conc 36.2 g/dL (32.0-36.0); Mean Corpuscular Volume 94.1 fL (80.0-100.0); Mean Platelet Volume 9.3 fL (9.4-12.4); Platelet Count 269 K/uL (130-400); RDW Standard Deviation 44.5 fL (36.4-46.3); Red Blood Count 4.61 M/uL (4.70-6.10); White Blood Count 17.13 K/ul (4.8-10.8)
[2024-07-04 15:32] LABS: INR 0.9 (0.9-1.1); Prothrombin Time 10.3 Seconds (9.0-12.0)
[2024-07-04 15:52] LABS: Basophils # (auto) 0.02 K/uL (0.00-0.20); Basophils % (auto) 0.1 %; Eosinophils # (auto) 0.12 K/uL (0.00-0.50); Eosinophils % (auto) 0.7 %; Immature Granulocytes # (auto) 0.07 K/uL (0.01-0.20); Immature Granulocytes % (auto) 0.4 %; Lymphocytes # (auto) 0.76 K/uL (1.20-3.40); Lymphocytes % (auto) 4.4 %; Monocytes # (auto) 0.61 K/uL (0.11-0.59); Monocytes % (auto) 3.6 %; Neutrophils # (auto) 15.55 K/uL (1.40-6.50); Neutrophils % (auto) 90.8 %
[2024-07-04] MEDS: OPTIRAY 320 100ml IV ONE (16:07)
--- NOTE | 2024-07-04 16:45 | CT Scan Report ---
CT abd pelvis IV con only CLINICAL HISTORY: abd pain, GI bleeding TECHNIQUE: Helical axial images of the abdomen and pelvis were obtained and displayed. Automated dose lowering techniques and/or adjustment according to patient size were utilized for this exam. This e xam was performed with intravenous contrast. CT DOSE: 733.19 mGy.cm COMPARISON: Comparison is made to CT abdomen pelvis 05/05/2019 FINDINGS: Lower chest: Interstitial thickening is seen. Liver: Unremarkable. No focal lesions are seen. Gallbladder and biliary tree: No calcified gallstones. Normal caliber wall. No intra- or extrahepatic biliary ductal dilation. Pancreas: Unremarkable, no focal lesions. Spleen: Unremarkable. Adrenals: Unremarkable. Kidneys and ureters: Unremarkable. Bladder: Unremarkable. Reproductive organs: Unremarkable. Bowel: Colonic wall thickening extends from the splenic flexure to the distal sigmoid colon. A few di verticula are seen. A hiatal hernia is seen. Lymph nodes Retroperitoneal: Unremarkable. Pelvic: Unremarkable. Mesenteric: Unremarkable. Peritoneum: Normal. Vessels: Atherosclerotic calcifications are seen. Abdominal wall: A fat-containing umbilical hernia is seen. Bones: Degenerative changes in the visualized spine. IMPRESSION: Colonic thickening in the splenic flexure to the distal sigmoid colon compatible with infectious/infl ammatory/ischemic colitis. The distribution does coincide with the inferior mesenteric artery distrib ution. ACT 112: Negative or not required by law. Electronically signed by: Gianluca Gale M.D. 07/04/2024 4:44 PM
[2024-07-04 17:32] LABS: Appearance Urine Clear (Clear); Bilirubin Urine Negative (Negative); Blood Urine Negative (Negative); Color Urine Yellow; Glucose Urine UA Negative (Negative); Ketones Urine Trace (Negative); Leukocyte Esterase Urine Negative (Negative); Nitrite Urine Negative (Negative); Protein Urine Negative (Negative); Specific Gravity Urine 1.022 (1.000-1.030); Urobilinogen Urine Negative (Negative); pH Urine 6.5 (4.5-7.5)
[2024-07-04] MEDS: SODIUM CHLORIDE 0.9% 1,000 ML IV SCH (17:53)
[2024-07-04] MEDS: PIPERACILLIN/TAZOBACTAM 4.5 GM/100 ML BAG IV ONE (17:54)
[2024-07-04 18:24] LABS: Magnesium 1.8 mg/dl (1.7-2.4); Phosphorus 3.1 mg/dl (2.5-4.9)
--- NOTE | 2024-07-04 18:56 | History & Physical Report ---
Date of Service July 04, 2024 Assessment & Plan (1) Colitis: Plan: Concerning for ischemia given distribution. Lactate normal. Stool PCR and c. diff PCR to assess for infective close N.p.o., IV fluids, empiric IV Zosyn recommended by surgery Consult surgery (2) Acid reflux: Plan: Currently under control with omeprazole. Switch to pantoprazole 40 mg IV BID. (3) Hematochezia: Plan: Suspected secondary to colitis as above Hgb WNL, Repeat with AM labs (4) Rheumatoid arthritis: Plan: Hold methotrexate Plan VTE Prophylaxis - SCDs Diet - NPO Disposition - admit to PCU Admission and Anticipated Discharge Date Admission Date: July 04, 2024 History of Present Illness Chief Complaint: Abdominal pain, rectal bleeding Primary Care Provider: Shane Boston MD Jr Holley is a 73-year-old male who presents to the ER with lower abdominal pain. His pain started at 5 AM, severity is 7-8/10 at worst, currently 3/10, Constant, non-cramping, no radiation. Associated hematochezia. No nausea or vomiting. He has never had a similar pain. Last colonoscopy was on 01/2024 which only showed multiple tubular adenomas, diverticula and non-bleeding external hemorrhoids. He denies any prior stroke, heart attack or atrial fibrillation. Allergies Allergy/AdvReac Type Severity Reaction Status Date / Time simvastatin [From Zocor] Allergy Intermediate Hives Verified 07/04/24 19:54 Yeast Allergy Intermediate Hives Verified 07/04/24 19:54 Home Medications Medication Instructions Recorded Confirmed Type omeprazole 20 mg capsule,delayed 20 mg PO BID PRN Acid Reflux 02/01/19 07/04/24 History release folic acid 1 mg tablet 1 mg PO QAM 09/12/21 07/04/24 History acetaminophen 500 mg capsule 500 mg PO Q6H PRN Fever Or Pain 07/01/23 07/04/24 History methotrexate sodium 2.5 mg tablet 15 mg PO Q7D 07/01/23 07/04/24 History rosuvastatin 5 mg tablet 5 mg PO QAM #90 tabs 08/14/23 07/04/24 Rx cholecalciferol (vitamin D3) 125 125 mcg PO QAM 02/04/24 07/04/24 History mcg (5,000 unit) tablet (Vitamin D3) cyanocobalamin (vitamin B-12) 1,000 mcg PO QAM 02/04/24 07/04/24 History 1,000 mcg tablet (Vitamin B-12) Past Med/Surg History Problem List (Updated 07/05/24 @ 02:30 by Chris Keith MD) Hematochezia Leukocytosis (Acute) Acute lower GI bleeding (Acute) Left lower quadrant abdominal pain (Acute) Colitis (Acute) COPD (chronic obstructive pulmonary disease) (Acute) Left knee pain Knee pain Ear lesion Ankle pain Current use of proton pump inhibitor Left shoulder pain Adjustment disorder (Acute) GERD without esophagitis (Acute) Hypercholesterolemia (Acute) Internal hemorrhoids (Acute) Tobacco use (Chronic) Tubular adenoma of colon (Acute) Rheumatoid arthritis Acid reflux History of colon polyps Medical History COPD (chronic obstructive pulmonary disease) Slow to wake up after anesthesia Smoker History of depression Tubular adenoma of colon GERD (gastroesophageal reflux disease) Rheumatoid arthritis Hyperlipidemia Surgical History History of cataract surgery History of open reduction and internal fixation (ORIF) procedure Hx of arthroscopy of knee History of herniorrhaphy History of colonoscopy Family History Mother Diabetes Cervical cancer Breast cancer Uncle Lung cancer Denies family history of Ovarian cancer Prostate cancer Myocardial infarction Colorectal cancer Stroke Social History Smoking Status: Current every day smoker Tobacco Type: Cigarettes Age Started Using Tobacco: 14; packs per day: 0.25; Cigarettes Per Day: 5; Second Hand Exposure: No; Do You Dip or Chew Tobacco: No; Tobacco Cessation Education Requested by Patient: No Hx Alcohol Use: No Hx Substance Use: No Preferred Language: Setswana Communication Ability: Effective Visual Impairment: Limited Hearing Ability: Use of Hearing Aid Commercial Art Instructor Required: No Beliefs That Will Affect Care: None marital status: Current Living Situation: Spouse current occupational status: retired How many Children do You have: 2 Other Information That Helps Us Care for You: No Feels Safe at Home: Yes Safety Concerns: Feels Safe At This Time Childhood Exposure to Second-Hand Smoke: Yes (step father) Diet Comment: Regular diet caffeine: Yes Dental Care, Regularly: Yes Physical Activity Frequency: Daily Seatbelt Use: always Sunscreen Use: No Assistive Devices: Denture - Lower and Hearing Aid - Bilateral Review of Systems Review of Systems: All systems reviewed & are unremarkable except as noted in HPI & below Physical Exam Constitutional: WD/WN, vitals as above ENMT: external ear and nose normal, oropharynx normal Respiratory: normal respiratory effort, lungs clear to auscultation Cardiovascular: RRR, no murmur, no edema Gastrointestinal (Abdomen): Inspection/Auscultation: abdomen normal to inspe ction; abdomen not distended Percussion/Palpation: + abdomen tender (lower abdominal) and abdomen soft; no guarding and abdomen not rigid Musculoskeletal: no cyanosis or clubbing, extremities motor strength 5/5 Skin: no rashes, warm and dry Neurologic: moves all extremities and awake; not confused Psychiatric: A+Ox3, euthymic affect Results & Data Results & Data Vital Signs (Past 12 Hours) Vital Signs Temp Pulse Resp BP Pulse Ox O2 Del Method 07/04/24 18:00 58 L 16 134/73 95 07/04/24 16:30 53 L 15 142/65 H 07/04/24 15:30 59 L 17 140/68 95 07/04/24 15:10 61 07/04/24 15:10 78 18 96 Room Air 07/04/24 15:00 59 L 21 152/70 H 97 07/04/24 14:11 36.4 C L 78 18 124/73 96 Room Air Laboratory Results Abnormal lab results 07/04/24 07/04/24 Range/Units 14:45 17:05 WBC 17.13 H (4.8-10.8) K/ul RBC 4.61 L (4.70-6.10) M/uL MCH 34.1 H (25.0-34.0) pg MCHC 36.2 H (32.0-36.0) g/dL MPV 9.3 L (9.4-12.4) fL Neut # (Auto) 15.55 H (1.40-6.50) K/uL Lymph # (Auto) 0.76 L (1.20-3.40) K/uL [place] # (Auto) 0.61 H (0.11-0.59) K/uL Glucose 106 H (70-99(Fasting)) mg/dl Total Bilirubin 1.6 H (0.2-1.0) mg/dl Lipase < 3 L (11-82) U/L Urine Ketones Trace H (Negative) Diagnostic Findings CT abd pelvis IV con only CLINICAL HISTORY: abd pain, GI bleeding TECHNIQUE: Helical axial images of the abdomen and pelvis were obtained and displayed. Automated dose lowering techniques and/or adjustment according to patient size were utilized for this exam. This exam was performed with in travenous contrast. CT DOSE: 733.19 mGy.cm COMPARISON: Comparison is made to CT abdomen pelvis 05/05/2019 FINDINGS: Lower chest: Interstitial thickening is seen. Liver: Unremarkable. No focal lesions are seen. Gallbladder and biliary tree: No calcified gallstones. Normal caliber wall. No intra- or extrahepatic biliary ductal dilation. Pancreas: Unremarkable, no focal lesions. Spleen: Unremarkable. Adrenals: Unremarkable. Kidneys and ureters: Unremarkable. Bladder: Unremarkable. Reproductive organs: Unremarkable. Bowel: Colonic wall thickening extends from the splenic flexure to the distal si gmoid colon. A few diverticula are seen. A hiatal hernia is seen. Lymph nodes Retroperitoneal: Unremarkable. Pelvic: Unremarkable. Mesenteric: Unremarkable. Peritoneum: Normal. Vessels: Atherosclerotic calcifications are seen. Abdominal wall: A fat-containing umbilical hernia is seen. Bones: Degenerative changes in the visualized spine. IMPRESSION: Colonic thickening in the splenic flexure to the distal sigmoid colon compatible with infectious/inflammatory/ischemic colitis. The distribution does coincide with the inferior mesenteric artery distribution. Medications Administered ER Medications Given: Zosyn 4.5 g q.8 hourly ECG Rate (beats per minute): 56 Rhythm: sinus bradycardia Findings: no acute ischemic change Comparison ECG Date: no prior available Code Status & VTE Plan Code Status Full VTE Prophylaxis Plan VTE Prophylaxis will be ordered: Yes PG Care Time/CCT Total # of Minutes Spent Total Time Spent with Patient: Total time spent is greater than 50% in coordination of care (as documented) at patient's floor/unit and/or counseling patient: Coding Level of Care Code 22062 INT INP/OBS CARE 2/55MIN Diagnoses Colitis K52.9 Acid reflux K21.9 Hematochezia K92.1 Rheumatoid arthritis M06.9
[2024-07-04] MEDS: PANTOprazole 40 MG in SYRINGE 0 ML IV ONE (21:03)
[2024-07-04] MEDS: LACTATED RINGER'S 1,000 ML IV SCH (21:04)
--- OUTSIDE RECORDS SUMMARY | 2024-07-04 22:12 | External Medical Summary | Summary of Care ---
Author Name Unknown Organization [facility] Address [address] [place] [address] Phone [phone] Care Team Providers Care Solid Waste Disposal Manager Name Role Phone Pro, Shane Fong MD Primary Care Provider [phone] Reason for Visit * Reason Onset Date Comments Medication Refill 04/30/2024 Encounter Details Date Type Department Care Team (Late st Contact Info) Description 04/30/2024 Refill Rheumatology [address] [place] [address] Clarke Brewer MD [facility] [place] [address] Allergies Active Allergy Reactions Criticality Noted Date Comments Atorvastatin Calcium 12/29/2007 Liver enzyme elevation Yeast-Related Products High 08/16/2010 Break out in hives, throat swelling From certain kinds of breads with yeast documented as of this encounter (statuses as of 05/02/2024) Medications Medication Sig Dispensed Refills Start Date End Date Status CRESTOR 5 MG PO TABS one daily 0 0 12/29/2007 Active Multiple Vitamins-Mineral s (CENTRUM SILVER 50+MEN) TABS Take by mouth. 1 daily Active predniSONE 5 MG Oral Tablet (Deltasone) one pill each day as needed for RA flare 30 Tablet 2 04/15/2022 Active Additional Information Patient not taking.Reported on 12/15/2022 Vitamin D 125 MCG (5000 UT) Oral Capsule Take by mouth . Active Omeprazole 20 MG Oral Capsule Delayed Release (PriLOSEC)Indica tions:Encounter for long-term (current) drug use Take 1 Capsule by mouth in the morning and 1 Capsule before bedtime. 180 Capsule 3 08/27/2023 Active Folic Acid 1 MG Oral Tablet TAKE 1 TABLET BY MOUTH IN THE MORNING 90 Tablet 3 11/10/2023 Active Vitamin B 12 500 MCG Oral Tablet Take by mouth. Activ e Vitamin C 500 MG Oral Capsule Take by mouth. Active Methotrexate Sodium 2.5 MG Oral Tablet TAKE 6 TABLETS BY MOUTH ONCE A WEEK 78 Tablet 05/02/2024 Active Methotrexate Sodium 2.5 MG Oral Tablet TAKE 6 TABLETS BY MOUTH ONCE A WEEK 78 Tablet 02/03/2024 4 Discontinue d(Refill) documented as of this encounter (statuses as of 05/02/2024) Active Problems Problem Noted Date Diagnosed Date Impingement syndrome of right shoulder 8 Encounter for long-term (current) use of medicat ions 09/28/2018 Rheumatoid arthritis involvi ng multiple sites with positive rheumatoid factor 08/20/2016 PPD positive 01/12/2015 Dyslipidemia, goal to be determined 12/29/2007 Tobacco use disorder 12/29/2007 documented as of this encounter (statuses as of 05/02/2024) Resolved Problems Problem Noted Date Diagnosed Date Resolved Date ARTHRITIS,RHEUMATOID 12/29/2007 016 documented as of this encounter (statuses as of 05/02/2024) Immunizations Name Administration Dates Next Due COVID-19 mRNA, LNP-s, No Pre serve, 2-Dose Series ([employer]) 07/04/2021,01/10/2021,12/20/2020 PPD 01/08/2015 Pneumococcal Polysaccharide PPV23 (Pneumovax) 11/15/2013,04/27/2008 Seasonal Influenza, QUAD, wi th Preserv, 6 mons & Above, 0.5 mL, IM 08/26/2023,09/16/2018 Seasonal Influenza, Quadriva lent Hd, 65+ Yrs 08/09/2022,08/09/2021 Seasonal Influenza, Split, I IV3, With Preserve, Inj 07/26/2019,08/26/2016,09/14/2015,08/25,08/26/2013,08/19/2012,08/04/2011 ,08/26/2010,08/16/2010(Deferred: Patient Refused - will get 08-23 elsewhere),08/01/2009,08/02/2008 Seasonal Influenza, Trivalen t, Adjuvanted, 65+ yrs 08/26/2020 documented as of this encounter Social History Tobacco Use Types Packs/Day Years Used Date Smoking Tobacco: Every Day Cigarettes 0.3 40 Smokeless Tobacco: Never Comments:40 yrs 1 pk/day-cut down to 2 ppd09/2009 Alcohol Use Standard Drinks/Week Comments No 0 (1 standard drink = 0.6 oz pur e alcohol) Utilities Answer Date Recorded Do you have trouble paying y our heating, water, or electric bill? (Adult - for ages 18 years and over) Not on file 04/12/2024 Is your family able to pay t he heat, water, or electric bill? (Household - for ages 0-17 years) Not on file 04/12/2024 Does your family have access to good internet? (Household - for ages 0-17 years) Not on file 04/12/2024 Social Connections Answer Date Recorded How often do you feel lonely or isolated from those around you? (Adult - for ages 18 years and over) Not on file 04/12/2024 Sex and Gender Information Value Date Recorded Sex Assigned at Male 06/29/2022 5:37 AM EDT Gender Identity Male 06/29/2022 5:37 AM EDT Sexual Orientation Straight 06/29/2022 5: 37 AM EDT Job Start Date Occupation Industry Not on file Not on file Not on file documented as of this encounter Miscellaneous Notes * Telephone Encounter - Rafiq Gong [facility] - 05/02/2024 11:14 AM EDTSigned Prescriptions: Disp Refills Methotrexate Sodium 2.5 MG Oral Tablet 78 Tab*0 Sig: TAKE 6 TABLETS BY MOUTH ONCE A WEEKAuthorizing Provider: CLARKE BREWER User: RAFIQ GONG--------- * Telephone Encounter - Rafiq Gong RPh - 05/02/2024 11:13 AM EDT Rheumatology: Refill Request(s) Per review of the refill parameters, Medication was refilled Rafiq Gong RPh [facility] Clinical Pharmacist Rheumatology Department 05/02/2024,11:13 AM * Telephone Encounter - Eduardo Reeves - 04/30/2024 4:50 PM EDTPending Prescriptions: Disp Refills Methotrexate Sodium 2.5 MG Oral Tablet 78 Tab*0 * Telephone Encounter - Eduardo Reeves - 04/30/2024 4:48 PM EDT Did you pend patient's preferred pharmacy and medication before forwarding?yes Pharmacy: [facility] [address] [address] Pending Prescriptions: Disp Refills Methotrexate Sodium 2.5 MG Oral Tablet 78 Tab*0 Last Visit: 12/15/2023 (in office), 02/16/2020 (telemedicine) Next Visit: 12/20/2024 If no future appointments scheduled, and last appointment is greater than a year ago, please schedule patient for a follow-up appointment Last date the medication was ordered: 02/03/2024 Is this request for a controlled substance?No Urine Drug Screen:No results found for this or any previous visit. Patient Phone Numbers Labs: Lab Results Component Value Date/Time CREAT 1.2 02/09/2024 08:54 AM CREAT 0.88 03/14/2022 12:00 AM CREAT 1.0 04/02/2020 07:20 AM POTASSIUM 5.5 (H) 02/09/2024 08:54 AM POTASSIUM 4.5 03/14/2022 12:00 AM POTASSIUM 4.4 04/02/2020 07:20 AM TSH 2.951 03/14/2022 12:00 AM LDLCALC 73 06/10/2023 09:02 AM LDLCALC 67 03/14/2022 12:00 AM LDLCALC 04/02/2020 07:16 AM Uninterpretable, recommend direct LDL cholesterol testing. LDLDIRECT 90 02/02/2012 09:45 AM ALT 24 02/09/2024 08:54 AM ALT 32 12/28/2020 12:00 AM ALT 26 04/02/2020 07:20 AM documented in this encounter Plan of Treatment Upcoming Encounters Date Type Department Care Team (Late st Contact Info) Description 12/20/2024 9:40 AM EST Office Visit Rheumatology [address] [place] [address] Clarke Brewer MD [address] [place] [address] [place] [address] Health Maintenance Due Date Last Done Comments Depression Screening 1963 DTaP,Tdap,and Td Vaccines (1 - Tdap) 1970 Zoster Vaccines (1 of 2) 1970 Cologuard 1996 Colonoscopy 1996 Colorectal Cancer Screening 1996 Fecal Occult Blood Test 1996 Sigmoidoscopy 1996 Pneumococcal Vaccine: 65+ Years (3 of 3 - PCV) 11/15/2014 11/15/2013, 04/27/2008 AAA Screening 2016 COVID-19 Vaccine ( season) 2023 07/04/2021, 01/10/2021, 12/20/2020 Influenza Vaccine (FLU shot) (#1) 2024 08/26/2023, 08/09/2022, 08/09/2021, Additional history exists Lipid Panel 06/10/2028 06/10/2023, 02/24, 08/19/2021, Additional history exists HPV (Gardasil) Vaccine Aged Out No lo nger eligible based on patient's age to complete this topic Hepatitis B Vaccine Aged Out No longe r eligible based on patient's age to complete this topic MENINGOCOCCAL (MENACTRA/MENVEO) Aged Out No longer eligible based on patient's age to complete this topic documented as of this encounter Medical Devices Not on filedocumented as of this encounter Care Teams Solid Waste Disposal Manager Relationship Specialty Start Date End Date Pro, Shane Fong MD [address] [place] [address] PCP - General Internal Medicine 04/07/17 documented as of this encounter
[2024-07-04] MEDS ORDERED: ACETAMINOPHEN 1,000 MG/100 ML VIAL IV PRN (23:34)
[2024-07-04] MEDS: PIPERACILLIN/TAZOBACTAM 4.5 GM/100 ML BAG IV SCH (23:52)
[2024-07-05] MEDS: MoRPHine SULFATE 2 MG/ML CARP IV PRN (00:59)
[2024-07-05] MEDS: MoRPHine SULFATE 4 MG/ML 1 ML CARP\\VIAL IV PRN (05:11)
--- NOTE | 2024-07-05 06:28 | Surgery Consultation ---
Date of Consultation July 05, 2024 Assessment & Plan (1) Colitis: Patient has been admitted on the hospital service. From surgery perspective we recommend the following: Provide analgesics Provide antiemetics He is currently n.p.o. and should continue for the present time He should be hydrated IV fluids, which is being done Antibiotics in form of Zosyn have been initiated and this should continue Is unclear if the patient is having infectious etiology of his colitis he is on antibiotics as noted above and also stool studies have been ordered which are pending. Although the patient does have a leukocytosis at the present time he is nontoxic-appearing as he is normotensive without tachycardia or fever. Will continue with conservative management as noted above and monitor his clinical progress. At the present time it does not appear that though he has a surgical abdomen. Additional recommendations to be forthcoming based on his clinical course as unfolds Supervising Physician Co-Signing Physician Notes 73 yo male with left sided colitis NPO IV ABX GI consult No plans for any operation unless he has signs of full thickness ischemia/perforation History of Present Illness Attending Physician: Alexis Mcelroy MD History of Present Illness This is a 73-year-old male who presented the emergency department secondary to abdominal pain that began over the past 24 hours. Patient reportedly had pain and in the left lower quadrant of his abdomen. He also had associated bright red blood per rectum. He denies any nausea or vomiting. He notes that no close contacts are ill with similar symptoms. He denies any fevers, shakes, or chills. He notes he is only had hernia surgery in the past. Patient notes that he has had a colonoscopy in the [facility] were reviewed and his most recent colonoscopy was in January 2019. On this study the patient had polyps removed and he was noted to have diverticulosis but no other significant problems were noted on the study. Since arrival to hospital patient has had labs and imaging which I independently reviewed. He did have a CT scan abdomen pelvis that showed colonic thickening in the splenic flexurethe interpreting radiologist felt this represented either infectious/inflammatory/ischemic colitis. Labs included CBC were white blood cell count was elevated 17.1. Hemoglobin and hematocrit as well as the platelet count were normal. Coagulation studies were noted to be normal. Chemistry profile showed sodium and potassium as well as the BUN and creatinine were normal. A urinalysis was not indicative of infection. At the time of my interview he was resting comfortably bed he was in no distress. Allergies Allergy/AdvReac Type Severity Reaction Status Date / Time simvastatin [From Zocor] Allergy Intermediate Hives Verified 07/04/24 19:54 Yeast Allergy Intermediate Hives Verified 07/04/24 19:54 Home Medications Medication Instructions Recorded Confirmed Type omeprazole 20 mg capsule,delayed 20 mg PO BID PRN Acid Reflux 02/01/19 07/04/24 History release folic acid 1 mg tablet 1 mg PO QAM 09/12/21 07/04/24 History acetaminophen 500 mg capsule 500 mg PO Q6H PRN Fever Or Pain 07/01/23 07/04/24 History methotrexate sodium 2.5 mg tablet 15 mg PO Q7D 07/01/23 07/04/24 History rosuvastatin 5 mg tablet 5 mg PO QAM #90 tabs 08/14/23 07/04/24 Rx cholecalciferol (vitamin D3) 125 125 mcg PO QAM 02/04/24 07/04/24 History mcg (5,000 unit) tablet (Vitamin D3) cyanocobalamin (vitamin B-12) 1,000 mcg PO QAM 02/04/24 07/04/24 History 1,000 mcg tablet (Vitamin B-12) Patient History Medical History COPD (chronic obstructive pulmonary disease) Slow to wake up after anesthesia Smoker History of depression Tubular adenoma of colon GERD (gastroesophageal reflux disease) Rheumatoid arthritis Hyperlipidemia Surgical History History of cataract surgery History of open reduction and internal fixation (ORIF) procedure Hx of arthroscopy of knee History of herniorrhaphy History of colonoscopy Family History Mother Diabetes Cervical cancer Breast cancer Uncle Lung cancer Denies family history of Ovarian cancer Prostate cancer Myocardial infarction Colorectal cancer Stroke Social History Smoking Status: Current every day smoker Tobacco Type: Cigarettes Age Started Using Tobacco: 14; packs per day: 0.25; Cigarettes Per Day: 5; Second Hand Exposure: No; Do You Dip or Chew Tobacco: No; Tobacco Cessation Education Requested by Patient: No Hx Alcohol Use: No Hx Substance Use: No Preferred Language: Chinese Communication Ability: Effective Visual Impairment: Limited Hearing Ability: Use of Hearing Aid Food Service Associate Required: No Beliefs That Will Affect Care: None marital status: Current Living Situation: Spouse current occupational status: retired How many Children do You have: 2 Other Information That Helps Us Care for You: No Feels Safe at Home: Yes Safety Concerns: Feels Safe At This Time Childhood Exposure to Second-Hand Smoke: Yes (step father) Diet Comment: Regular diet caffeine: Yes Dental Care, Regularly: Yes Physical Activity Frequency: Daily Seatbelt Use: always Sunscreen Use: No Assistive Devices: Denture - Lower and Hearing Aid - Bilateral Review of Systems Review of Systems: All systems reviewed & are unremarkable except as noted in HPI & below Physical Exam Constitutional: WD/WN, vitals as above Eyes: no conjunctival abnormality ENMT: Ears: no hearing impairment and no external ear abnormality Mouth: no oropharynx abnormality Neck: trachea midline Respiratory: normal respiratory effort; no respiratory distress and no labored breathing Cardiovascular: Rate/Rhythm: regular rate and regular rhythm Gastrointestinal (Abdomen): At the time my exam patient's abdomen was soft and nondistended. There is no rebound tenderness or guarding. Patient only had slight tenderness to palpation in the left lower quadrant. Musculoskeletal: No calf tenderness Skin: no rashes Neurologic: moves all extremities Psychiatric: A+Ox3, euthymic affect Results & Data Vital Signs (Past 12 Hours) Vital Signs Temp Pulse Pulse Resp BP Pulse Ox Pulse Ox 07/05/24 02:50 37.2 C 66 18 134/70 96 07/04/24 23:39 58 L 07/04/24 21:51 36.6 C 49 L 18 163/70 H 97 07/04/24 21:48 62 07/04/24 21:32 07/04/24 20:52 36.6 C 63 18 163/70 H 97 07/04/24 20:52 97 07/04/24 20:30 59 L 18 150/70 H 95 07/04/24 19:03 51 L O2 Del Method O2 Del Method 07/05/24 02:50 Room Air 07/04/24 23:39 07/04/24 21:51 Room Air 07/04/24 21:48 07/04/24 21:32 Room Air 07/04/24 20:52 Room Air 07/04/24 20:52 Room Air 07/04/24 20:30 Room Air 07/04/24 19:03 PG Care Time/CCT Total # of Minutes Spent Total Time Spent with Patient: Total time spent is greater than 50% in coordination of care (as documented) at patient's floor/unit and/or counseling patient: Coding Level of Care Code 72351 INT INP/OBS CARE 3/75MIN Diagnoses Colitis K52.9
[2024-07-05 08:07] LABS: Basophils # (auto) 0.02 K/uL (0.00-0.20); Basophils % (auto) 0.2 %; Eosinophils # (auto) 0.32 K/uL (0.00-0.50); Eosinophils % (auto) 2.7 %; Hematocrit (blood only) 38.5 % (42.0-52.0); Hemoglobin 13.3 g/dl (14.0-18.0); Immature Granulocytes # (auto) 0.04 K/uL (0.01-0.20); Immature Granulocytes % (auto) 0.3 %; Lymphocytes # (auto) 0.99 K/uL (1.20-3.40); Lymphocytes % (auto) 8.3 %; Mean Corpuscular Hemoglobin 33.3 pg (25.0-34.0); Mean Corpuscular Hgb Conc 34.5 g/dL (32.0-36.0); Mean Corpuscular Volume 96.5 fL (80.0-100.0); Mean Platelet Volume 9.3 fL (9.4-12.4); Monocytes # (auto) 0.96 K/uL (0.11-0.59); Neutrophils # (auto) 9.67 K/uL (1.40-6.50); Neutrophils % (auto) 80.5 %; Platelet Count 204 K/uL (130-400); RDW Coefficient of Variation 13.5 % (11.5-14.5); Red Blood Count 3.99 M/uL (4.70-6.10)
[2024-07-05 08:21] LABS: Albumin Globulin Ratio 1.6 (0.9-2); Albumin Level 3.3 gm/dl (3.4-5.0); BUN Creatinine Ratio 9.3 (10-20); Calcium 8.2 mg/dl (8.6-10.3); Creatinine Clr Calc Pharmacy 77.6 ml/min; Est GFR (African American) 100.4 ml/min; Est GFR (Non-African American) 86.6 ml/min; Globulin 2.1 gm/dl (2.5-4.0); Potassium 3.9 mmol/L (3.5-5.1); Total Protein 5.4 gm/dl (6.0-8.3)
[2024-07-05] MEDS: PANTOprazole 40 MG in SYRINGE 0 ML IV SCH (08:53)
[2024-07-05] MEDS: traMADol HCL 50 MG TABLET PO STA (12:08)
[2024-07-05 12:21] LABS: Adenovirus F 40/41 PCR Not Detected (NotDetected); Astrovirus PCR Not Detected (NotDetected); Campylobacter PCR Not Detected (NotDetected); Cryptosporidium PCR Not Detected (NotDetected); Cyclospora cayetanensis PCR Not Detected (NotDetected); Entamoeba histolytica PCR Not Detected (NotDetected); Enteroaggregative E.coli(EAEC) Not Detected (NotDetected); Enterotoxigenic E.coli (ETEC) Not Detected (NotDetected); Giardia lamblia PCR Not Detected (NotDetected); Norovirus GI/GII PCR Not Detected (NotDetected); Plesiomonas shigelloides PCR Not Detected (NotDetected); Rotavirus A PCR Not Detected (NotDetected); Salmonella PCR Not Detected (NotDetected); Sapovirus PCR Not Detected (NotDetected); Shiga-like Toxin E.coli (STEC) Not Detected (NotDetected); Shigella/Enteroinvasive E.coli Not Detected (NotDetected); Vibrio cholerae PCR Not Detected (NotDetected); Vibrio species PCR Not Detected (NotDetected); Yersinia enterocolitica PCR Not Detected (NotDetected)
[2024-07-05 12:24] LABS: Enteropathogenic E.coli (EPEC) DETECTED (NotDetected)
[2024-07-05 13:15] LABS: Hematocrit (blood only) 37.7 % (42.0-52.0); Hemoglobin 13.1 g/dl (14.0-18.0)
[2024-07-05] MEDS: AZITHROMYCIN 250 MG TAB PO ONE (14:25)
--- NOTE | 2024-07-05 19:31 | Hospitalist Progress Note ---
Date of Service July 05, 2024 Assessment & Plan (1) Colitis: Plan: could be combination of ischemia (ADELE distribution) and infection (EPEC positive on stool BioFire) either way should improve with supportive care cont NPO status due to pain & ongoing bloody stools cont IV fluids is on zosyn if ischemic colitis adding azithromycin x 3 days for EPEC given severity of illness repeat labs am appreciate gen surg assistance (2) Acid reflux: Plan: cont pantoprazole 40 mg IV BID (3) Hematochezia: Plan: 2nd to #1 trend H/H (4) Rheumatoid arthritis: Plan: Hold methotrexate No RA flare at this time (5) Enteropathogenic Escherichia coli infection: Plan: stool BioFire + for such could be cause of #1 above in light of severity of illness will Rx with azithromycin 500mg PO daily x 3 days, first dose now (6) Acute blood loss anemia: Plan: 2nd to #1 mild drop - initial Hb 15.7, now 13.1 trend H/H (7) COPD (chronic obstructive pulmonary disease): Plan: no flare at this time Plan VTE Prophylaxis - SCDs, chemical means contraindicated due to #1 Admission and Anticipated Discharge Date Admission Date: July 04, 2024 Subjective pt reports still feels unwell but improved abdominal pain - lower - not as severe as yesterday no recent travel no sick contacts no obvious old, contaminated foods consumed has had total of 3 loose stools - 1 of which was very bloody - since this am no vomiting tele - NSR Review of Systems Review of Systems: gen - no fevers cv - no chest pain pulm - no dyspnea GI - ongoing abd pain but improving Physical Exam Physical Exam: gen - looks unwell, resting comfortably in bed mouth - MM slightly dry neck - no JVD heart - RRR, s1 s2, no murmur lungs - CTA b/l abd - tender LLQ, BS+, ND, no HSM, soft, no peritoneal signs ext - no edema, pulses 2+ b/l psych - a/o x 3 Results & Data Results & Data Vital Signs (Past 12 Hours) Vital Signs Temp Pulse Pulse Resp BP Pulse Ox O2 Del Method 07/05/24 15:49 66 07/05/24 14:55 36.7 C 63 19 120/66 97 Room Air 07/05/24 10:51 36.7 C 63 19 120/66 97 Room Air 07/05/24 10:05 68 Laboratory Results Laboratory Results - last 24 hr 07/05/24 07/05/24 07/05/24 07:27 10:30 12:41 WBC 12.00 H RBC 3.99 L Hgb 13.3 L 13.1 L Hct 38.5 L 37.7 L MCV 96.5 MCH 33.3 MCHC 34.5 RDW Std Deviation 47.0 H RDW Coeff of Marissa 13.5 Plt Count 204 MPV 9.3 L Immature Gran % (Auto) 0.3 Neut % (Auto) 80.5 Lymph % (Auto) 8.3 [place] % (Auto) 8.0 Eos % (Auto) 2.7 Baso % (Auto) 0.2 Neut # (Auto) 9.67 H Lymph # (Auto) 0.99 L [place] # (Auto) 0.96 H Eos # (Auto) 0.32 Baso # (Auto) 0.02 Immature Gran # (Auto) 0.04 Sodium 140 Potassium 3.9 Chloride 108 H Carbon Dioxide 28 Anion Gap 4 BUN 8 Creatinine 0.86 Est Cr Clr Drug Dosing 77.6 Est GFR ( Amer) 100.4 Est GFR (Non-Af Amer) 86.6 BUN/Creatinine Ratio 9.3 L Glucose 102 H Calcium 8.2 L Total Bilirubin 2.0 H AST 69 H ALT 60 H Alkaline Phosphatase 60 Total Protein 5.4 L D Albumin 3.3 L Globulin 2.1 L Albumin/Globulin Ratio 1.6 Stl C. cayetanensis PCR Not Detected Stool Rotavirus A PCR Not Detected Stl Adenov F 40/41 PCR Not Detected Stool Astrovirus (PCR) Not Detected Stool Campylobacter PCR Not Detected Stl C. diff Tox B Gene Cancelled Stool Cryptosporidium PCR Not Detected Stl E.coli Shiga Tox PCR Not Detected Stl Enterotoxigenic E PCR Not Detected Stool EPEC (PCR) DETECTED A* Stool EAEC (PCR) Not Detected Stl E. histolytica PCR Not Detected Stool Giardia Lamblia PCR Not Detected Stool Salmonella PCR Not Detected Stool Sapovirus (PCR) Not Detected Stl P. shigelloides PCR Not Detected Stl Shigella/EIEC PCR Not Detected St Y.enterocolitica PCR Not Detected Stool Vibrio (PCR) Not Detected Stl Vibrio cholerae PCR Not Detected Stl Norovirus GI/GII PCR Not Detected PG Care Time/CCT Total # of Minutes Spent Total Time Spent with Patient: Total time spent is greater than 50% in coordination of care (as documented) at patient's floor/unit and/or counseling patient: Coding Level of Care Code 73524 SUB INP/OBS CARE 2/35MIN Diagnoses Colitis K52.9 Acid reflux K21.9 Hematochezia K92.1 Rheumatoid arthritis M06.9 Enteropathogenic Escherichia coli infection A04.0 Acute blood loss anemia D62 COPD (chronic obstructive pulmonary disease) J44.9
[2024-07-06 07:52] LABS: Basophils # (auto) 0.03 K/uL (0.00-0.20); Basophils % (auto) 0.2 %; Eosinophils # (auto) 0.48 K/uL (0.00-0.50); Eosinophils % (auto) 3.8 %; Hemoglobin 12.4 g/dl (14.0-18.0); Immature Granulocytes # (auto) 0.04 K/uL (0.01-0.20); Immature Granulocytes % (auto) 0.3 %; Lymphocytes # (auto) 0.94 K/uL (1.20-3.40); Lymphocytes % (auto) 7.5 %; Mean Corpuscular Hgb Conc 35.4 g/dL (32.0-36.0); Mean Corpuscular Volume 95.9 fL (80.0-100.0); Mean Platelet Volume 9.5 fL (9.4-12.4); Monocytes # (auto) 1.01 K/uL (0.11-0.59); Monocytes % (auto) 8.1 %; Neutrophils # (auto) 10.02 K/uL (1.40-6.50); Neutrophils % (auto) 80.1 %; Platelet Count 203 K/uL (130-400); RDW Coefficient of Variation 13.4 % (11.5-14.5); RDW Standard Deviation 46.5 fL (36.4-46.3); Red Blood Count 3.65 M/uL (4.70-6.10); White Blood Count 12.52 K/ul (4.8-10.8)
[2024-07-06 08:10] LABS: Albumin Globulin Ratio 1.5 (0.9-2); Albumin Level 3.2 gm/dl (3.4-5.0); BUN Creatinine Ratio 7.1 (10-20); Bilirubin,Total 2.2 mg/dl (0.2-1.0); Calcium 8.2 mg/dl (8.6-10.3); Creatinine Clr Calc Pharmacy 78.6 ml/min; Est GFR (African American) 100.9 ml/min; Est GFR (Non-African American) 87.1 ml/min; Globulin 2.2 gm/dl (2.5-4.0); Magnesium 1.7 mg/dl (1.7-2.4); Potassium 3.9 mmol/L (3.5-5.1); Total Protein 5.4 gm/dl (6.0-8.3)
--- NOTE | 2024-07-06 09:22 | Surgery Progress Note ---
Date of Service July 06, 2024 Assessment & Plan (1) Colitis: Plan: His pain is mildly improved, his white blood cell count is stable Trial clears today and see how he does No plans for any surgical intervention Admission and Anticipated Discharge Date Admission Date: July 04, 2024 Subjective Patient seen and examined. Still with some abdominal pain but improved. Afebrile. No tachycardia. Review of Systems Constitutional: no fever and no chills Eyes: no blind spots and no discharge Respiratory: no cough and no dyspnea Cardiovascular: no chest pain and no dyspnea on exertion Gastrointestinal: + abdominal pain; no nausea, no vomiting and no constipation Integumentary: no acne, no skin ulcer and no erythema Psychiatric: no behavioral changes and no depression Hematologic / Lymphatic: no easy bleeding and no easy bruising Physical Exam Constitutional: WD/WN, vitals as above Eyes: PERRL, conjunctivae normal, anicteric sclerae Respiratory: normal respiratory effort, lungs clear to auscultation Cardiovascular: RRR, no murmur, no edema Gastrointestinal (Abdomen): Inspection/Auscultation: abdomen normal to inspection; abdomen not distended Percussion/Palpation: + abdomen tender ( left lower quadrant) and abdomen soft; no guarding Skin: no rashes, warm and dry Psychiatric: A+Ox3, euthymic affect Results & Data Vital Signs (Past 12 Hours) Vital Signs Temp Pulse Pulse Resp BP Pulse Ox O2 Del Method 07/06/24 07:03 36.7 C 63 14 120/66 97 Room Air 07/06/24 07:01 63 07/06/24 03:00 36.8 C 70 16 122/68 94 Room Air 07/05/24 23:23 72 07/05/24 22:32 36.7 C 63 18 120/66 97 Room Air PG Care Time/CCT Total # of Minutes Spent Total Time Spent with Patient: Total time spent is greater than 50% in coordination of care (as documented) at patient's floor/unit and/or counseling patient: Coding Level of Care Code 78399 SUB INP/OBS CARE 11/19MIN Diagnoses Colitis K52.9
[2024-07-06] MEDS: AZITHROMYCIN 250 MG TAB PO SCH (09:34)
--- NOTE | 2024-07-06 14:41 | Hospitalist Progress Note ---
Date of Service July 06, 2024 Assessment & Plan (1) Colitis: Plan: could be combination of ischemia (ADELE distribution) and infection (EPEC positive on stool BioFire) IMPROVING clears started today by gen surg - tolerating such can lower fluid rate since taking some PO can stop IV zosyn today day #2 of 3 of azithromycin for EPEC infection (Rx given the severity of illness) repeat labs am appreciate gen surg assistance (2) Acid reflux: Plan: cont pantoprazole 40 mg IV BID can convert to PO in am tomorrow (3) Hematochezia: Plan: 2nd to #1 resolved H/H stable (4) Rheumatoid arthritis: Plan: Hold methotrexate No RA flare at this time (5) Enteropathogenic Escherichia coli infection: Plan: stool BioFire + for such could be cause of #1 above in light of severity of illness will Rx with azithromycin 500mg PO daily x 3 days, 2nd dose today (6) Acute blood loss anemia: Plan: 2nd to #1 mild drop - initial Hb 15.7, now 12.4 repeat CBC am (7) COPD (chronic obstructive pulmonary disease): Plan: no flare at this time Plan VTE Prophylaxis - SCDs, chemical means contraindicated due to #1 ambulate progressing nicely Admission and Anticipated Discharge Date Admission Date: July 04, 2024 Subjective patient feeling much better was started on clears by gen surg & tolerating such thus far no stools today blood per rectum resolved last BM was 2am - liquid, but again no blood abd pain resolved no Nausea or emesis Review of Systems Review of Systems: gen - no fevers or chills cv - no cp pulm - no dyspnea Physical Exam Physical Exam: gen - looks much better today, NAD mouth - MMM neck - no JVD heart - RRR, s1 s2, no murmur lungs - CTA b/l abd - soft, nontender, BS+, ND, no HSM, no peritoneal signs ext - no edema, pulses 2+ b/l psych - a/o x 3 Results & Data Results & Data Vital Signs (Past 12 Hours) Vital Signs Temp Pulse Pulse Resp BP Pulse Ox O2 Del Method 07/06/24 10:39 36.7 C 81 16 111/62 96 Room Air 07/06/24 07:03 36.7 C 63 14 120/66 97 Room Air 09/11/24 07:01 63 07/06/24 03:00 36.8 C 70 16 122/68 94 Room Air Laboratory Results Laboratory Results - last 24 hr 07/06/24 07:12 WBC 12.52 H RBC 3.65 L Hgb 12.4 L Hct 35.0 L MCV 95.9 MCH 34.0 MCHC 35.4 RDW Std Deviation 46.5 H RDW Coeff of Marissa 13.4 Plt Count 203 MPV 9.5 Immature Gran % (Auto) 0.3 Neut % (Auto) 80.1 Lymph % (Auto) 7.5 [place] % (Auto) 8.1 Eos % (Auto) 3.8 Baso % (Auto) 0.2 Neut # (Auto) 10.02 H Lymph # (Auto) 0.94 L [place] # (Auto) 1.01 H Eos # (Auto) 0.48 Baso # (Auto) 0.03 Immature Gran # (Auto) 0.04 Sodium 141 Potassium 3.9 Chloride 106 Carbon Dioxide 28 Anion Gap 7 BUN 6 Creatinine 0.85 Est Cr Clr Drug Dosing 78.6 Est GFR ( Amer) 100.9 Est GFR (Non-Af Amer) 87.1 BUN/Creatinine Ratio 7.1 L Glucose 87 Calcium 8.2 L Magnesium 1.7 Total Bilirubin 2.2 H AST 24 ALT 33 Alkaline Phosphatase 52 Total Protein 5.4 L Albumin 3.2 L Globulin 2.2 L Albumin/Globulin Ratio 1.5 PG Care Time/CCT Total # of Minutes Spent Total Time Spent with Patient: Total time spent is greater than 50% in coordination of care (as documented) at patient's floor/unit and/or counseling patient: Coding Level of Care Code 47819 SUB INP/OBS CARE 11/19MIN Diagnoses Colitis K52.9 Acid reflux K21.9 Hematochezia K92.1 Rheumatoid arthritis M06.9 Enteropathogenic Escherichia coli infection A04.0 Acute blood loss anemia D62 COPD (chronic obstructive pulmonary disease) J44.9
[2024-07-07 07:39] LABS: Hematocrit (blood only) 36.9 % (42.0-52.0); Hemoglobin 12.8 g/dl (14.0-18.0); Mean Corpuscular Hemoglobin 33.7 pg (25.0-34.0); Mean Corpuscular Hgb Conc 34.7 g/dL (32.0-36.0); Mean Corpuscular Volume 97.1 fL (80.0-100.0); Mean Platelet Volume 9.2 fL (9.4-12.4); Platelet Count 203 K/uL (130-400); RDW Coefficient of Variation 13.4 % (11.5-14.5); RDW Standard Deviation 47.8 fL (36.4-46.3); White Blood Count 12.49 K/ul (4.8-10.8)
[2024-07-07 08:04] LABS: BUN Creatinine Ratio 6.6 (10-20); Calcium 8.6 mg/dl (8.6-10.3); Creatinine Clr Calc Pharmacy 87.9 ml/min; Est GFR (African American) 105.6 ml/min; Est GFR (Non-African American) 91.1 ml/min; Potassium 3.7 mmol/L (3.5-5.1)
[2024-07-07] MEDS: PANTOprazole 40 MG TAB PO SCH (08:11)
--- NOTE | 2024-07-07 09:23 | Surgery Progress Note ---
Date of Service July 07, 2024 Assessment & Plan (1) Colitis: Plan: He continues to improve and is tolerating clear liquids E. coli has been found in his stool which is the likely cause of his colitis Can advance diet as tolerated Surgery will sign off at this time, please call with any questions or concerns Admission and Anticipated Discharge Date Admission Date: July 04, 2024 Subjective Patient seen and examined. Afebrile. States his pain is improved since yesterday. He is having a fair amount of bowel movements. Review of Systems Constitutional: no fever and no chills Eyes: no blind spots and no discharge Respiratory: no cough and no dyspnea Cardiovascular: no chest pain and no dyspnea on exertion Gastrointestinal: + abdominal pain; no nausea, no vomiting and no constipation Integumentary: no acne, no skin ulcer and no erythema Psychiatric: no behavioral changes and no depression Hematologic / Lymphatic: no easy bleeding and no easy bruising Physical Exam Constitutional: WD/WN, vitals as above Eyes: PERRL, conjunctivae normal, anicteric sclerae Respiratory: normal respiratory effort, lungs clear to auscultation Cardiovascular: RRR, no murmur, no edema Gastrointestinal (Abdomen): Inspection/Auscultation: abdomen normal to inspection; abdomen not distended Percussion/Palpation: + abdomen tender ( left lower quadrant, improved from yesterday) and abdomen soft; no guarding Skin: no rashes, warm and dry Psychiatric: A+Ox3, euthymic affect Results & Data Vital Signs (Past 12 Hours) Vital Signs Temp Pulse Pulse Resp BP Pulse Ox O2 Del Method 07/07/24 07:19 68 07/07/24 07:15 36.5 C 67 18 136/73 96 Room Air 07/07/24 02:21 36.9 C 69 17 127/71 98 Room Air 07/06/24 23:46 66 07/06/24 22:40 36.9 C 63 17 116/63 96 Room Air PG Care Time/CCT Total # of Minutes Spent Total Time Spent with Patient: Total time spent is greater than 50% in coordination of care (as documented) at patient's floor/unit and/or counseling patient: Coding Level of Care Code 44381 SUB INP/OBS CARE 1/25MIN Diagnoses Colitis K52.9
--- NOTE | 2024-07-07 19:21 | Hospitalist Progress Note ---
Date of Service July 07, 2024 Assessment & Plan (1) Colitis: Plan: again improved 2nd to infection (EPEC) 2nd to possible ischemia (ADELE distribution) advance to full liquids today, then low fiber tomorrow gen surg signing off - they are pleased with how he is doing completed 3 days of azithromycin for EPEC infection (Rx given the severity of illness) repeat labs am appreciate gen surg assistance (2) Acid reflux: Plan: cont pantoprazole (3) Hematochezia: Plan: 2nd to #1 resolved H/H remain stable (4) Rheumatoid arthritis: Plan: Hold methotrexate No RA flare at this time (5) Enteropathogenic Escherichia coli infection: Plan: stool BioFire + for such likely the main cause of #1 above in light of severity of illness elected to Rx with azithromycin 500mg PO daily x 3 days, 3rd dose today (6) Acute blood loss anemia: Plan: 2nd to #1 mild drop - initial Hb 15.7, now 12.8 repeat CBC am (7) COPD (chronic obstructive pulmonary disease): Plan: no flare at this time Plan VTE Prophylaxis - SCDs, chemical means contraindicated due to #1 ambulate progressing nicely updated pt's by phone this evening should be able to d/c home tomorrow Admission and Anticipated Discharge Date Admission Date: July 04, 2024 Subjective no events overnight abd pain largely resolved just some minor lower abdominal soreness no nausea/emesis stools normalizing frequency of stools - very low - 1x/day at this point tolerating liquids no other new complaints Review of Systems Review of Systems: gen - no fevers or chills cv - no cp pulm - no dyspnea Physical Exam Physical Exam: gen - NAD, looks well mouth - MMM neck - no JVD heart - RRR, s1 s2, no murmur lungs - CTA b/l abd - soft, nontender, BS+, ND, no HSM, no peritoneal signs ext - no edema, pulses 2+ b/l psych - a/o x 3 Results & Data Results & Data Vital Signs (Past 12 Hours) Vital Signs Temp Pulse Pulse Resp BP Pulse Ox O2 Del Method 07/07/24 15:00 36.8 C 60 18 136/65 97 Room Air 07/07/24 13:42 65 07/07/24 11:07 36.6 C 58 L 18 129/67 98 Room Air Laboratory Results Laboratory Results - last 24 hr 07/07/24 07:00 WBC 12.49 H RBC 3.80 L Hgb 12.8 L Hct 36.9 L MCV 97.1 MCH 33.7 MCHC 34.7 RDW Std Deviation 47.8 H RDW Coeff of Marissa 13.4 Plt Count 203 MPV 9.2 L Sodium 141 Potassium 3.7 Chloride 106 Carbon Dioxide 28 Anion Gap 7 BUN 5 L Creatinine 0.76 Est Cr Clr Drug Dosing 87.9 Est GFR ( Amer) 105.6 Est GFR (Non-Af Amer) 91.1 BUN/Creatinine Ratio 6.6 L Glucose 87 Calcium 8.6 PG Care Time/CCT Total # of Minutes Spent Total Time Spent with Patient: Total time spent is greater than 50% in coordination of care (as documented) at patient's floor/unit and/or counseling patient: Coding Level of Care Code 16425 SUB INP/OBS CARE 2/35MIN Diagnoses Colitis K52.9 Acid reflux K21.9 Hematochezia K92.1 Rheumatoid arthritis M06.9 Enteropathogenic Escherichia coli infection A04.0 Acute blood loss anemia D62 COPD (chronic obstructive pulmonary disease) J44.9
[2024-07-08 07:04] VITALS: BP 129/70; RESP 18; TEMP 97.9; O2SAT 94
[2024-07-08 07:35] LABS: Basophils # (auto) 0.03 K/uL (0.00-0.20); Basophils % (auto) 0.3 %; Eosinophils # (auto) 0.48 K/uL (0.00-0.50); Eosinophils % (auto) 4.9 %; Hemoglobin 13.8 g/dl (14.0-18.0); Immature Granulocytes # (auto) 0.03 K/uL (0.01-0.20); Immature Granulocytes % (auto) 0.3 %; Lymphocytes # (auto) 0.88 K/uL (1.20-3.40); Mean Corpuscular Hemoglobin 33.4 pg (25.0-34.0); Mean Corpuscular Hgb Conc 34.5 g/dL (32.0-36.0); Mean Corpuscular Volume 96.9 fL (80.0-100.0); Mean Platelet Volume 9.7 fL (9.4-12.4); Monocytes # (auto) 0.39 K/uL (0.11-0.59); Neutrophils # (auto) 7.95 K/uL (1.40-6.50); Neutrophils % (auto) 81.5 %; Platelet Count 252 K/uL (130-400); RDW Coefficient of Variation 13.3 % (11.5-14.5); RDW Standard Deviation 46.7 fL (36.4-46.3); Red Blood Count 4.13 M/uL (4.70-6.10); White Blood Count 9.76 K/ul (4.8-10.8)
[2024-07-08 07:48] LABS: BUN Creatinine Ratio 6.3 (10-20); Calcium 8.9 mg/dl (8.6-10.3); Creatinine Clr Calc Pharmacy 84.5 ml/min; Est GFR (Non-African American) 89.7 ml/min; Potassium 3.5 mmol/L (3.5-5.1)
--- NOTE | 2024-07-08 15:25 | Discharge Summary ---
Discharge Summary Date of Service July 08, 2024 Principal Dx & Hospital Course #1 = Principal Diagnosis (1) Colitis: again improved 2nd to infection (EPEC) 2nd to possible ischemia (ADELE distribution) advance to full liquids today, then low fiber tomorrow gen surg signing off - they are pleased with how he is doing completed 3 days of azithromycin for EPEC infection (Rx given the severity of illness) repeat labs am appreciate gen surg assistance (2) Acid reflux: cont pantoprazole (3) Hematochezia: 2nd to #1 resolved H/H remain stable (4) Rheumatoid arthritis: Hold methotrexate No RA flare at this time (5) Enteropathogenic Escherichia coli infection: stool BioFire + for such likely the main cause of #1 above in light of severity of illness elected to Rx with azithromycin 500mg PO daily x 3 days, 3rd dose today (6) Acute blood loss anemia: 2nd to #1 mild drop - initial Hb 15.7, now 12.8 repeat CBC am (7) COPD (chronic obstructive pulmonary disease): no flare at this time Plan VTE Prophylaxis - SCDs, chemical means contraindicated due to #1 ambulate progressing nicely updated pt's by phone this evening should be able to d/c home tomorrow Admission HPI Per Admitting Provider Jr Holley is a 73-year-old male who presents to the ER with lower abdominal pain. His pain started at 5 AM, severity is 7-8/10 at worst, currently 3/10, Constant, non-cramping, no radiation. Associated hematochezia. No nausea or vomiting. He has never had a similar pain. Last colonoscopy was on 01/2024 which only showed multiple tubular adenomas, diverticula and non-bleeding external hemorrhoids. He denies any prior stroke, heart attack or atrial fibrillation. Discharge Exam gen - NAD, looks well mouth - MMM neck - no JVD heart - RRR, s1 s2, no murmur lungs - CTA b/l abd - soft, nontender, BS+, ND, no HSM, no peritoneal signs ext - no edema, pulses 2+ b/l psych - a/o x 3 Discharge Plan Discharge Items Patient Disposition: Home - Self-Care Reason For Visit: COLITIS Discharge Diagnosis: 1. colitis - due to e.coli infection; cannot rule out ischemia having also contributed (see handouts) 2. rheumatoid arthritis 3. blood in stool - due to #1- resolving Activity: As commented below Activity Comment: gradually increase your activities over the next 3-5 days Non-emergency contact: Primary Care Provider Call non-emergency contact if: you have any medication questions, your symptoms worsen, your pain is unusual for you, your pain is concerning for you and you have a fever Follow-up/Referrals: Shane Boston MD [Primary Care Provider] - 07/15/24 3:00 pm (Hospital follow up scheduled July 15 at 3:00 with Radha Mojica) Diet: Low Fiber Addtl Attending Provider Instructions: Mr Holley, You were hospitalized due to having colitis. Colitis is a term used to describe inflammation of the colon. There are various causes of colitis (see handouts). In your case your colitis was caused by infection. Your stool studies were positive for e.coli infection. I cannot rule out that there was an element of ischemia (ischemic colitis) that contributed to your colitis as well. You may have caught e.coli from contaminated food, a public restroom, etc. Your e.coli infection was treated with a 3-day course of oral antibiotics. If you had ischemia it often gets better with supportive care and time alone. All of your blood work has improved/normalized, your vital signs have been stable, and you have been resumed on a low-fiber diet. You are tolerating the low-fiber diet and your gastrointestinal symptoms have improved. At this time please follow a low-fiber diet for at least 7 more days. See handout on low-fiber diet. It is unlikely that you are contagious to others despite the recent e.coli infection. With that said please wash your hands thoroughly with soap/water after using the toilet, and clean your bathroom at home thoroughly with bleach and/or bleach wipes. These steps are especially important over the next 3-5 days. Finally, do not take your methotrexate at this time. Wait at least until , 07/14/24, before taking the next dose. Follow-up - see Dr Boston as scheduled Return to [facility] if - * you have fevers over 100 degrees * you see large amounts of bright red blood in your stools * you have recurrent abdominal pains * you cannot tolerate food and/or beverages * you have vomiting * any other concerns It was our pleasure to care for you! -Dr Mcelroy Pending Studies at Discharge: No Stand-Alone Forms: My [facility], Smoking Cessation Medications and DC Order Prescriptions: Continued rosuvastatin 5 mg tablet 5 mg PO QAM Qty: 90 3RF folic acid 1 mg tablet 1 mg PO QAM omeprazole 20 mg Capsule,Delayed Release(Dr/Ec) 20 mg PO BID PRN (Reason: Acid Reflux) acetaminophen 500 mg capsule 500 mg PO Q6H PRN (Reason: Fever Or Pain) cyanocobalamin (vitamin B-12) [Vitamin B-12] 1,000 mcg Tablet 1,000 mcg PO QAM cholecalciferol (vitamin D3) [Vitamin D3] 125 mcg (5,000 unit) Tablet 125 mcg PO QAM Held methotrexate sodium 2.5 mg tablet 15 mg PO Q7D Hold Instructions: Resume on 07/14/24. Patient Comments: Rx Instructions: Discharge Orders: Discharge Order (Routine); Ordered 07/08/24 Ordered By: Alexis Proctor/Other Patient Handouts: Low-Fiber Diet, Ischemic Colitis, Understanding Colitis Admission Data Admit Date/Time: 07/04/24 18:48 Attending Provider: Alexis Mcelroy Admit Provider: Alexis Rubio Primary Care Provider: Shane Boston Other Providers: Alexis Rubio; Piotr Casey Hospital Stay Data Consultations 07/04/24 17:37 ED Decision to Admit Stat 07/04/24 23:51 Consult General Surgery Routine Diagnostic Imagining Performed 07/04/24 14:34 CT abd pelvis IV con only Stat Pending Results Patient Have Any Pending Studies at Discharge: No Discharge Instructions Given to Patient (Per Discharging Provider) Mr Holley, Jeff were hospitalized due to having colitis. Colitis is a term used to describe inflammation of the colon. There are various causes of colitis (see handouts). In your case your colitis was caused by infection. Your stool studies were positive for e.coli infection. I cannot rule out that there was an element of ischemia (ischemic colitis) that contributed to your colitis as well. You may have caught e.coli from contaminated food, a public restroom, etc. Your e.coli infection was treated with a 3-day course of oral antibiotics. If you had ischemia it often gets better with supportive care and time alone. All of your blood work has improved/normalized, your vital signs have been stable, and you have been resumed on a low-fiber diet. You are tolerating the low-fiber diet and your gastrointestinal symptoms have improved. At this time please follow a low-fiber diet for at least 7 more days. See handout on low-fiber diet. It is unlikely that you are contagious to others despite the recent e.coli infection. With that said please wash your hands thoroughly with soap/water after using the toilet, and clean your bathroom at home thoroughly with bleach and/or bleach w ipes. These steps are especially important over the next 3-5 days. Finally, do not take your methotrexate at this time. Wait at least until , 07/14/24, before taking the next dose. Follow-up - see Dr Boston as scheduled Return to [facility] if - * you have fevers over 100 degrees * you see large amounts of bright red blood in your stools * you have recurrent abdominal pains * you cannot tolerate food and/or beverages * you have vomiting * any other concerns It was our pleasure to care for you! -Dr Mcelroy Coding Diagnoses Colitis K52.9 Acid reflux K21.9 Hematochezia K92.1 Rheumatoid arthritis M06.9 Enteropathogenic Escherichia coli infection A04.0 Acute blood loss anemia D62 COPD (chronic obstructive pulmonary disease) J44.9
[2024-07-08 15:29] VITALS: PULSE 71
== END 2024-07-08 15:53 | disposition home or self-care (01) | DRG 372 ==
LOC: ED 14:07 → SUATTDRO 18:48 → 2S 18:48